=== PATIENT | female | born 1965 | race African-American/Black ===

== ENCOUNTER 2017-07-22 19:20 | Emergency (ER) | payer OTHER ==
[2017-07-22 20:07] LABS: Bilirubin Negative (Negative); Blood, Urine Negative (Negative); Glucose, Urine (Dipstick) >=1000 mg/dL (Negative); Ketone, Urine Negative (Negative); Nitrite Negative (Negative); Protein, Urine (Dipstick) 30 mg/dL (Neg-Trace); Urobilinogen 0.2 mg/dL (0.2-1.0)
[2017-07-22 20:10] LABS: Bacteria/HPF 2+ HPF (None Seen); Hyaline Casts/LPF 0-3 HYALINE CAST LPF (0-3 Hyaline); RBC/HPF 0-3 HPF (0-3)
[2017-07-22 21:51] LABS: ALT (SGPT) 78 U/L (8-55); AST (SGOT) 45 U/L (5-34); Alkaline Phosphatase 140 U/L (40-150); Anion Gap 16 mmol/L (10-20); BUN (Urea Nitrogen) 10 mg/dL (9.8-20.1); Bilirubin, Total 0.5 mg/dL (0.2-1.2); Calc. Creatinine Clearance 0 mL/min (70-130); Calcium 9.6 mg/dL (7.8-10.44); Carbon Dioxide 23 mmol/L (22-29); Chloride 103 mmol/L (98-107); Estimated GFR-MDRD 89; Globulin 3.2 g/dL (2.4-3.5); Protein, Total 7.2 g/dL (6.0-8.3)
[2017-07-22 21:58] LABS: Hematocrit 37.1 % (36.0-47.0); Mean Platelet Volume 8.5 fL (7.4-10.4); White Blood Cell (WBC) Count 15.8 thou/uL (4.8-10.8)
[2017-07-22] MEDS ORDERED: Insulin Regular 300 UNITS/3 ML VIAL ONE (22:16)
[2017-07-22] MEDS ORDERED: cefTRIAXone\\ROCEPHIN 1 GM in Sodium Chloride 0.9% 10 ML SLOW IVP SCH (22:30)
[2017-07-22 22:31] LABS: Band 4 % (5-11); Neutrophil 54 % (42-75); Nucleated RBC 1 % (0)
[2017-07-22] MEDS ORDERED: Morphine 10 MG/ML VIAL ONE (22:44)
[2017-07-22] MEDS ORDERED: Ondansetron HCl/PF 4 MG/2 ML Vial ONE (22:44)
== END 2017-07-23 00:36 | disposition home or self-care (01) ==
LOC: ERS 19:20
DX: N10 Acute pyelonephritis (principal); E11.65 Type 2 diabetes mellitus with hyperglycemia; I10 Essential (primary) hypertension; F17.210 Nicotine dependence, cigarettes, uncomplicated; Z79.4 Long term (current) use of insulin; Z79.82 Long term (current) use of aspirin
CPT/HCPCS: 36415; 36416; 80053; 81003; 81015; 85025; 86140; 96361; 96374; 96375; J0696; J1815; J2270; J2405

== ENCOUNTER → 2017-08-03 | Day surgery (SDC) | payer OTHER ==
--- NOTE | 2017-08-03 13:27 | MMO ---
DIAGNOSTIC RIGHT MAMMOGRAM: Date: 08/03/17 CLINICAL HISTORY: Postprocedure mammogram status post stereotactic biopsy of right breast. FINDINGS: Stereotactic biopsy was performed of right breast mass located deep within the upper central right b reast. Status post biopsy and clip deployment, there is a clip which now resides just cephalad to th e biopsied mass. Postprocedural air density is present. A previous clip within the anterior right br east is seen. IMPRESSION: Status post stereotactic biopsy of right breast with clip deployment. Clip is located just cephalad to the mass of the deep central right breast. Pathology results are pending. POS: [facility]
--- NOTE | 2017-08-03 13:27 | MMO ---
STEREOTACTIC BIOPSY OF RIGHT BREAST: Date: 08/03/17 CLINICAL HISTORY: Right breast lesion. PROCEDURE: Informed consent was obtained. The patient was escorted to the procedure suite and placed in a prone position with the right breast placed into compression. Stereotactic imaging was performed to local ize the mass of interest. Stereotactic coordinates were obtained. The patient's right breast was the n prepped and draped in the standard sterile fashion. Topical anesthesia was achieved with 1% lidoca ine. Through a small skin incision site, a 10 gauge stereotactic biopsy was advanced to the leading edge of the mass, confirmed with imaging, and then deployed. Subsequently, six core vacuum-assist sp ecimens were acquired of the mass. Biopsy marking clip was then deployed, which resided at the site of the biopsy mass. The patient tolerated the procedure well. Hemostasis was achieved. The patient w as discharged in stable condition. IMPRESSION: 1. Technically successful stereotactic biopsy of right breast. 2. Technically successful clip deployment at the site of biopsied right breast mass. Pathology results are pending. Patient has requested that her physician, Dr. Stanley Larson, notify her of the pathologic results when they are received. POS: [facility]
--- NOTE | 2017-08-03 13:34 | MMO ---
SPECIMEN RADIOGRAPH: Date: 08/03/17 CLINICAL HISTORY: Status post stereotactic biopsy of right breast mass. FINDINGS: Radiograph of six core specimens performed which reveals breast density corresponding to the biopsie d mass. The mass was not calcified, and therefore there is no expectation for calcium within the exc ised specimens. IMPRESSION: Specimen radiographs of right breast mass. POS: [facility]
== END ==
LOC: MAMMO 07:01
PROVIDERS: ATTEND Surgery
PROC: 0HBT3ZX Excision of Right Breast, Percutaneous Approach, Diagnostic (ICD-10-PCS; principal; 2017-08-03)
DX: N60.31 Fibrosclerosis of right breast (principal); E11.9 Type 2 diabetes mellitus without complications; F17.200 Nicotine dependence, unspecified, uncomplicated; Z79.4 Long term (current) use of insulin; Z91.041 Radiographic dye allergy status
CPT/HCPCS: 19081; 76098; 88305; 89060; G0206-RT

== ENCOUNTER 2017-11-20 09:31 | Outpatient (CLI) | payer OTHER | END 2017-11-20 09:32 | disposition home or self-care (01) | LOC: BICULT 09:31 | PROVIDERS: ATTEND Internal Medicine Medical Oncology | DX: C94.6 Myelodysplastic disease, not elsewhere classified (principal); R16.2 Hepatomegaly with splenomegaly, not elsewhere classified; K76.0 Fatty (change of) liver, not elsewhere classified | CPT/HCPCS: 76700 ==

== ENCOUNTER 2018-02-05 10:15 | Outpatient (CLI) | payer OTHER | END 2018-02-05 10:16 | disposition home or self-care (01) | LOC: BICMAMMO 10:15 | PROVIDERS: ATTEND Surgery | DX: N63.10 Unspecified lump in the right breast, unspecified quadrant (principal) | CPT/HCPCS: 77066; G0279 ==

== ENCOUNTER 2018-02-11 21:34 | Emergency (ER) | payer OTHER ==
[2018-02-11 22:09] LABS: Bilirubin Negative (Negative); Blood, Urine Negative (Negative); Clarity CLOUDY (Clear); Glucose, Urine (Dipstick) 250 mg/dL (Negative); Leukocyte Negative (Negative); Nitrite Negative (Negative); Protein, Urine (Dipstick) 100 mg/dL (Neg-Trace); Specific Gravity, Urine 1.017 (1.002-1.036); Urobilinogen 0.2 mg/dL (0.2-1.0)
[2018-02-11 22:11] LABS: Bacteria/HPF Rare-Few HPF (None Seen); Hyaline Casts/LPF 0-3 HYALINE CAST LPF (0-3 Hyaline); Pathc Cast-AUWi Flag 0.58 (0-2.49)
[2018-02-11] MEDS ORDERED: Ketorolac Tromethamine 30 MG/ML VIAL ONE (22:19)
--- NOTE | 2018-02-11 22:39 | CT ---
CT ABDOMEN AND PELVIS: 02/11/2018 PROVIDED CLINICAL HISTORY: Flank pain. COMPARISON: 04/29/2016 FINDINGS: The visualized lung bases are free of significant opacity. The solid abdominal organs are suboptimally evaluated without IV contrast but demonstrate an unremark able unenhanced CT appearance. There is no evidence for urinary tract calculi or hydronephrosis. There is no bowel dilatation, inflammatory fat stranding, free fluid, or free air apparent. The appe ndix appears normal. The osseous structures demonstrate no concerning lytic or blastic lesions. Degenerative changes are noted. Vascular calcifications are seen. IMPRESSION: No evidence for urinary tract calculi or hydronephrosis. POS: [facility]
[2018-02-11 22:42] LABS: #Basophils 0.2 thou/uL (0.0-0.2); #Eosinphils 0.2 thou/uL (0.0-0.7); #Lymphocytes 3.4 thou/uL (1.20-3.40); #Monocytes 0.7 thou/uL (0.11-0.59); #Neutrophils 9.1 thou/uL (1.40-6.50); %Basophils 1.3 % (0.0-1.0); %Eosinophils 1.6 % (0.0-10.0); %Lymphocytes 24.8 % (21.0-51.0); %Neutrophils 67.3 % (42.0-75.0); Hemoglobin 12.4 g/dL (12.0-16.0); Mean Corpuscular HGB CONC 33.4 g/dL (32.0-36.0); Mean Corpuscular Hemoglobin 26.8 pg (27.0-31.0); Mean Corpuscular Volume 80.2 fl (81.0-99.0); Mean Platelet Volume 8.6 fL (7.4-10.4); Platelet Count 980 thou/uL (130-400); RBC Distribution Width 17.3 % (11.5-14.5); Red Blood Cell (RBC) Count 4.63 mill/uL (4.20-5.40); White Blood Cell (WBC) Count 13.5 thou/uL (4.8-10.8)
[2018-02-11 23:49] LABS: ALT (SGPT) 22 U/L (8-55); AST (SGOT) 25 U/L (5-34); Albumin 3.8 g/dL (3.5-5.0); Alkaline Phosphatase 99 U/L (40-150); Anion Gap 14 mmol/L (10-20); BUN (Urea Nitrogen) 8 mg/dL (9.8-20.1); Bilirubin, Total 0.6 mg/dL (0.2-1.2); Calc. Creatinine Clearance 0 mL/min (70-130); Calcium 9.3 mg/dL (7.8-10.44); Carbon Dioxide 24 mmol/L (22-29); Chloride 105 mmol/L (98-107); Estimated GFR-MDRD Greater than 90; Globulin 3.3 g/dL (2.4-3.5); Glucose 273 mg/dL (70-105); Lipase 50 U/L (8-78); Protein, Total 7.1 g/dL (6.0-8.3); Sodium 139 mmol/L (136-145)
[2018-02-12] MEDS ORDERED: HYDROcodone/Acetaminophen 5/325 mg Tablet ONE
[2018-02-12] MEDS ORDERED: Oxymetazoline HCl 0.05% ( 15 ML ) ONE
== END 2018-02-12 00:10 | disposition home or self-care (01) ==
LOC: ERS 21:34
DX: R10.31 Right lower quadrant pain (principal); E11.9 Type 2 diabetes mellitus without complications; I10 Essential (primary) hypertension; F32.9 Major depressive disorder, single episode, unspecified; F17.210 Nicotine dependence, cigarettes, uncomplicated; Z79.4 Long term (current) use of insulin; Z79.82 Long term (current) use of aspirin; Z79.899 Other long term (current) drug therapy
CPT/HCPCS: 74176; 80053; 81003; 81015; 83690; 85025; 96361; 96374; J1885

== ENCOUNTER → 2018-02-23 | Day surgery (SDC) | payer OTHER | LOC: BICULT 13:27 | PROVIDERS: ATTEND Surgery | PROC: 0HBT3ZX Excision of Right Breast, Percutaneous Approach, Diagnostic (ICD-10-PCS; principal; 2018-02-23) | DX: C50.211 Malignant neoplasm of upper-inner quadrant of right female breast (principal) | CPT/HCPCS: 19083; 88305 ==

== ENCOUNTER 2018-03-16 15:08 | Outpatient (CLI) | payer OTHER ==
[2018-03-16 15:55] LABS: Hemoglobin 12.1 g/dL (12.0-16.0); Mean Corpuscular HGB CONC 34.4 g/dL (32.0-36.0); Mean Corpuscular Hemoglobin 26.9 pg (27.0-31.0); Mean Corpuscular Volume 78.2 fL (78.0-98.0); Mean Platelet Volume 7.8 fL (7.4-10.4); Platelet Count 911 thou/uL (130-400); RBC Distribution Width 16.8 % (11.5-14.5); Red Blood Cell (RBC) Count 4.48 mill/uL (4.20-5.40); White Blood Cell (WBC) Count 15.6 thou/uL (4.8-10.8)
[2018-03-16 16:16] LABS: ALT (SGPT) 16 U/L (8-55); AST (SGOT) 19 U/L (5-34); Albumin 3.9 g/dL (3.5-5.0); Alkaline Phosphatase 98 U/L (40-150); Anion Gap 13 mmol/L (10-20); BUN (Urea Nitrogen) 13 mg/dL (9.8-20.1); Bilirubin, Total 0.4 mg/dL (0.2-1.2); Calc. Creatinine Clearance 0 mL/min (70-130); Calcium 9.3 mg/dL (7.8-10.44); Carbon Dioxide 20 mmol/L (22-29); Chloride 107 mmol/L (98-107); Estimated GFR-MDRD Greater than 90; Globulin 3.1 g/dL (2.4-3.5); Glucose 302 mg/dL (70-105); Potassium 3.8 mmol/L (3.5-5.1); Sodium 136 mmol/L (136-145)
[2018-03-16 16:25] LABS: #Basophils 0.2 thou/uL (0.0-0.2); #Eosinphils 0.3 thou/uL (0.0-0.7); #Lymphocytes 3.7 thou/uL (1.20-3.40); #Monocytes 0.8 thou/uL (0.11-0.59); #Neutrophils 10.6 thou/uL (1.40-6.50); %Basophils 1.3 % (0.0-1.0); %Eosinophils 1.6 % (0.0-10.0); %Lymphocytes 23.8 % (21.0-51.0); %Neutrophils 68.3 % (42.0-75.0); Anisocytosis SLIGHT = 6-15 cells (100X) (0-5/hpf); MDiff Complete? YES; Ovalocytes SLIGHT = 2-5 cells (100X) (0-1/hpf); PLT Morphology Comment Appears Increased; Polychromasia SLIGHT = 2-3 cells (100X) (0-2/hpf); Tear Drops SLIGHT = 2-5 cells (100X) (0-1/hpf)
== END 2018-03-16 15:09 | disposition home or self-care (01) ==
LOC: LABBT 15:08
PROVIDERS: ATTEND Surgery
DX: Z01.818 Encounter for other preprocedural examination (principal); C50.919 Malignant neoplasm of unspecified site of unspecified female breast
CPT/HCPCS: 80053; 85025; 93005; 93010

== ENCOUNTER 2018-03-19 11:10 | Day surgery (SDC) | payer OTHER ==
[2018-03-16 15:44] VITALS: BMI 29.2
[~2018-03-19 11:10] MED LIST: Lidocaine 1% PF 5 ML VIAL ONE; Metoclopramide HCl 10 MG/2 ML VIAL ONE; Ondansetron HCl/PF 4 MG/2 ML Vial ONE; PROPOFOL 200 MG/20 ML VIAL ONE
[2018-03-19] MEDS ORDERED: CEFAZOLIN/Water 2 GM/20 ML SYRINGE ONE (11:34)
[2018-03-19] MEDS ORDERED: Bupivacaine/Epinephrine 0.25% 30 ML VIAL ONE (12:20)
[2018-03-19] MEDS ORDERED: Midazolam HCl 2 mg/2 ml Vial ONE (12:22)
[2018-03-19] MEDS ORDERED: Propofol 1,000 MG/100 ML VIAL IV ONE (12:22)
[2018-03-19] MEDS ORDERED: Fentanyl 100 MCG/2 ML VIAL ONE ×2 (12:22→13:33)
--- NOTE | 2018-03-19 13:41 | OP ---
DATE OF PROCEDURE: 03/19/2018 PREOPERATIVE DIAGNOSIS: Breast cancer. SURGEON: Stanley Larson M.D. PROCEDURE PERFORMED: MediPort placement. INDICATIONS: A 52-year-old female with very aggressive breast cancer needs preoperative chemo. FINDINGS: A difficult procedure, the J wire just kept going up into the neck, I had to do it under a ctive fluoroscopy, was finally able to get it down into the superior vena cava. PROCEDURE: After informed consent was obtained, the patient was taken to the operating room and give n general mask anesthesia, placed in supine position. The abdomen was prepped and draped in usual fa shion. Local anesthesia infiltrated subcutaneously and deep. Introducer needle was inserted in left subclavian with good backflow of venous blood. J-wire threaded, but only partially and when I had t hem do fluoroscopy, it was going up the neck, so under active fluoroscopy, I pulled it back and then advanced it with her in reverse Trendelenburg to go down into the superior vena cava. Then the subq was anesthetized. A transverse chest wall incision performed. The subcu divided sharply. A pocket created on the pectoralis muscle. A tunneling device was used to connect the two incisions. The cath eter brought through the tunnel, connected to the MediPort secured to the chest wall with interrupted 2-0 Prolene suture. Then the system was flushed with heparinized saline. The peel-away introducer inserted over the wire. The wire was removed. The catheter cut to size and inserted through the pee l-away introducer, then the peel-away introducer removed. Fluoroscopy again used. It showed that th e catheter was in the brachiocephalic but it was working fine. The subcu was reapproximated with int errupted 3-0 Vicryl. Skin closed with a running subcuticular 4-0 Rapide. Dermabond applied. The pa tient tolerated the procedure well and was transferred to recovery in good condition. Sponge and nee dle count verified correct x2.
[2018-03-19] MEDS ORDERED: HYDROcodone/Acetaminophen 5/325 mg Tablet ONE (14:59)
--- NOTE | 2018-03-19 15:11 | RAD ---
SUPINE PORTABLE CHEST: HISTORY: Assess MediPort placement. MediPort catheter is in place in the left subclavian vein. The tip of the catheter overlies the righ t upper lung and probably resides in the right brachiocephalic vein. Lungs are clear. Heart and med iastinum unremarkable. No pneumothorax. Dr. Larson is being paged for notification at time of dictation. CODE CR POS: [facility]
== END 2018-03-19 15:47 | disposition home or self-care (01) ==
LOC: SDC 11:10
PROVIDERS: ATTEND Surgery
PROC: 0JH63WZ Insertion of Totally Implantable Vascular Access Device into Chest Subcutaneous Tissue and Fascia, Percutaneous Approach (ICD-10-PCS; principal; 2018-03-19)
DX: C50.919 Malignant neoplasm of unspecified site of unspecified female breast (principal); Z91.041 Radiographic dye allergy status
CPT/HCPCS: 36415; 36416; 71045; 80053; 82248; 83615; 84100; 84550; 96374; C1788; J1642; J2001; J2250; J2405; J2704; J2765; J3010

== ENCOUNTER 2018-03-23 09:36 | Day surgery (SDC) | payer OTHER ==
[2018-03-23] MEDS ORDERED: Sodium Chloride 0.9% 50 ML ONE (09:55)
--- NOTE | 2018-03-23 11:20 | RAD ---
CHEST TWO VIEWS: History: Mediport placement. Comparison: 01-13-16 FINDINGS: Cardiac silhouette and pulmonary vasculature unremarkable. Mediastinum midline. Tip of the left subcl rosario Mediport projects over the superior vena cava. No evidence of pneumothorax. No lobar consolidat ion, pleural fluid, or focal infiltrate. IMPRESSION: Left subclavian Mediport is in good radiographic position. POS: [facility]
[2018-03-23 12:41] VITALS: BP 148/85; TEMP 97.9
== END 2018-03-23 14:43 | disposition home or self-care (01) ==
LOC: ONC/OP 09:36
PROVIDERS: ATTEND Internal Medicine Medical Oncology
DX: Z51.11 Encounter for antineoplastic chemotherapy (principal); C50.411 Malignant neoplasm of upper-outer quadrant of right female breast; D72.828 Other elevated white blood cell count; Z91.041 Radiographic dye allergy status
CPT/HCPCS: 71046; 99212; A4216; G0463; J1642

== ENCOUNTER 2018-03-31 09:43 | Day surgery (SDC) | payer OTHER ==
[2018-03-31 13:24] VITALS: BP 185/79; TEMP 98.1
== END 2018-03-31 15:15 | disposition home or self-care (01) ==
LOC: ONC/OP 09:43
PROVIDERS: ATTEND Internal Medicine Medical Oncology
DX: Z51.11 Encounter for antineoplastic chemotherapy (principal); C50.411 Malignant neoplasm of upper-outer quadrant of right female breast; D72.828 Other elevated white blood cell count; Z91.041 Radiographic dye allergy status
CPT/HCPCS: 99212; G0463

== ENCOUNTER 2018-04-01 07:56 | Outpatient (CLI) | payer OTHER ==
[2018-04-01] MEDS ORDERED: Pegfilgrastim 6 MG/0.6 ML Delivery Kit SQ SCH (09:45)
[2018-04-01] MEDS ORDERED: Dexamethasone 20 MG in Sodium Chloride 0.9% 50 ML IVPB SCH (09:45)
[2018-04-01] MEDS ORDERED: PALONOSETRON HCL 0.05 MG/ML 5 ML VIAL IVP SCH (09:45)
[2018-04-01] MEDS ORDERED: CARBOPLATIN IVPB SCH (09:45)
[2018-04-01] MEDS ORDERED: diphenhydrAMINE 50 MG/ML VIAL IVP SCH (09:45)
[2018-04-01] MEDS ORDERED: SODIUM CHLORIDE 0.9% IVPB SCH ×3 (09:45→10:15)
[2018-04-01] MEDS ORDERED: Acetaminophen 500 MG TAB PO SCH (09:45)
[2018-04-01] MEDS ORDERED: DOCEtaxel 140 MG in Sodium Chloride 0.9% 250 ML 250 ML IVPB SCH (09:45)
[2018-04-01] MEDS ORDERED: TRASTUZUMAB IVPB SCH ×2 (10:00→10:15)
--- NOTE | 2018-04-01 11:25 | RAD ---
VASCULAR ACCESS PORT CHECK: HISTORY: A 52-year-old female with a history of pain and discomfort in left arm with port injection and manipu lation. FLUOROSCOPY TIME: 1.1 minute. DOSE: 316.7 mGy*^m2. FINDINGS: Iodinated contrast media was injected within the port. There is no evidence for extravasation at any of the connections. Contrast media progressed readily through the catheter emptying into the superi or vena cava. IMPRESSION: Normal functioning left subclavian catheter and injection port. No obstruction or extravasation. POS: [facility]
[2018-04-01 12:12] VITALS: BP 187/89; TEMP 98.8
[2018-04-01] MEDS ORDERED: Iopamidol-M 300 61% 15 ML VIAL ONE (13:32)
== END 2018-04-01 16:15 | disposition home or self-care (01) ==
LOC: RAD 07:56 → ONC/OP 16:15
PROVIDERS: ATTEND Internal Medicine Medical Oncology
DX: C50.411 Malignant neoplasm of upper-outer quadrant of right female breast (principal); D72.828 Other elevated white blood cell count
CPT/HCPCS: 36598; 96375; 96377; 96413; 96417; J1100; J1200; J1642; J2469; J2505; J7050; J9045; J9171; J9355

== ENCOUNTER 2018-04-01 21:52 | Inpatient (IN) | payer OTHER ==
--- NOTE | 2018-04-01 22:10 | CT ---
HEAD CT WITHOUT CONTRAST: 04/01/18 COMPARISON: 02/05/15. HISTORY: Stroke-like symptoms, left arm numbness and weakness with chest pain. TECHNIQUE: Serial axial CT imaging at 5 mm intervals from vertex through skull base without contrast. FINDINGS: The visualized paranasal sinuses and mastoid air cells are well aerated. There is no displaced calvar ial fracture. No intracranial hemorrhage, midline shift, mass effect or ventricular enlargement. IMPRESSION: No acute findings. Results called to Dr. Fox at 10 p.m., 04/01/18. Code CR POS: [facility]
[2018-04-01 22:14] LABS: Hemoglobin 12.4 g/dL (12.0-16.0); Mean Corpuscular HGB CONC 33.8 g/dL (32.0-36.0); Mean Corpuscular Hemoglobin 26.1 pg (27.0-31.0); Mean Corpuscular Volume 77.3 fL (78.0-98.0); Platelet Count 922 thou/uL (130-400); RBC Distribution Width 20.2 % (11.5-14.5); Red Blood Cell (RBC) Count 4.73 mill/uL (4.20-5.40)
[2018-04-01 22:30] LABS: ALT (SGPT) 29 U/L (8-55); AST (SGOT) 19 U/L (5-34); Albumin 4.3 g/dL (3.5-5.0); Alkaline Phosphatase 162 U/L (40-150); Anion Gap 17 mmol/L (10-20); BUN (Urea Nitrogen) 19 mg/dL (9.8-20.1); Bilirubin, Total 0.5 mg/dL (0.2-1.2); Calc. Creatinine Clearance 0 mL/min (70-130); Calcium 9.8 mg/dL (7.8-10.44); Carbon Dioxide 19 mmol/L (22-29); Chloride 100 mmol/L (98-107); Estimated GFR-MDRD 62; Globulin 3.1 g/dL (2.4-3.5); Lipase 25 U/L (8-78); Magnesium 2.4 mg/dL (1.6-2.6); Potassium 4.5 mmol/L (3.5-5.1); Protein, Total 7.4 g/dL (6.0-8.3); Sodium 131 mmol/L (136-145)
[2018-04-01 22:33] LABS: Lymphocytes 4 % (21-51); MDiff Complete? YES; Monocytes 8 % (0-10); Neutrophil 88 % (42-75); PLT Morphology Comment Appears Increased; White Blood Cell (WBC) Count 22.8 thou/uL (4.8-10.8)
[2018-04-01 22:34] LABS: CKMB 1.5 ng/mL (0-6.6); Troponin I Less than 0.010 ng/mL (< 0.028)
[2018-04-01 22:35] LABS: Glucose 727 mg/dL (70-105)
[2018-04-01] MEDS ORDERED: Ondansetron HCl/PF 4 MG/2 ML Vial ONE (23:28)
[2018-04-01] MEDS ORDERED: Insulin Regular 100 units/100 ml in NS IVPB SCH (23:45)
[2018-04-01] MEDS ORDERED: Insulin Regular 300 UNITS/3 ML VIAL ONE (23:52)
[2018-04-02 01:48] LABS: Bilirubin Negative (Negative); Blood, Urine Small (Negative); Clarity CLEAR (Clear); Glucose, Urine (Dipstick) >=1000 mg/dL (Negative); Leukocyte Negative (Negative); Nitrite Negative (Negative); Protein, Urine (Dipstick) 100 mg/dL (Neg-Trace); Specific Gravity, Urine 1.024 (1.002-1.036); Urobilinogen 0.2 mg/dL (0.2-1.0); pH, Urine 6.5 (5.0-9.0)
[2018-04-02 01:50] LABS: Anion Gap 12 mmol/L (10-20); BUN (Urea Nitrogen) 16 mg/dL (9.8-20.1); Calc. Creatinine Clearance 0 mL/min (70-130); Carbon Dioxide 20 mmol/L (22-29); Chloride 106 mmol/L (98-107); Estimated GFR-MDRD Greater than 90; Glucose 526 mg/dL (70-105); Potassium 3.9 mmol/L (3.5-5.1); Sodium 134 mmol/L (136-145)
[2018-04-02 01:53] LABS: Bacteria/HPF None Seen HPF (None Seen); Hyaline Casts/LPF 0-3 HYALINE CAST LPF (0-3 Hyaline); Pathc Cast-AUWi Flag 0.14 (0-2.49); RBC/HPF 0-3 HPF (0-3); Squamous Epithelial None Seen HPF (0-3); WBC/HPF None Seen HPF (0-3)
[2018-04-02] MEDS ORDERED: D5 1/2 NS w/20 mEq KCL 1,000 ML IV PRN (03:59)
[2018-04-02] MEDS ORDERED: Sodium Chloride 0.9% 1,000 ML IV PRN ×4 (03:59)
[2018-04-02] MEDS ORDERED: Dextrose 5 %-0.45 % NaCl 1,000 ML IV PRN (03:59)
[2018-04-02] MEDS ORDERED: Acetaminophen 325 MG TAB PO PRN (03:59)
[2018-04-02] MEDS ORDERED: CCU Electrolyte Replacement 1 EACH IVPB SCH (03:59)
[2018-04-02] MEDS ORDERED: NS 0.9% w/ 20 MEQ KCL 1,000 ML IV PRN (03:59)
[2018-04-02] MEDS ORDERED: Potassium Chloride 40 MEQ in Premix Bag 1 BAG IVPB PRN (04:03)
[2018-04-02] MEDS ORDERED: Magnesium 2 GM/NS 0.9% 100 ML 2 GM in Premix Bag 1 BAG IVPB PRN (04:03)
[2018-04-02] MEDS ORDERED: Potassium Chloride 20 MEQ TAB PO PRN (04:03)
[2018-04-02] MEDS ORDERED: CCU ELECTROLYTE REPLACEMENT PROTOCOL FS PRN (04:03)
[2018-04-02] MEDS ORDERED: Potassium Chloride 40 MEQ in Sodium Chloride 0.9% 250 ML 250 ML IVPB PRN (04:03)
[2018-04-02] MEDS ORDERED: Potassium Phosphate 15 MMOL in Sodium Chloride 0.9% 250 ML 250 ML IV PRN (04:03)
[2018-04-02] MEDS ORDERED: Potassium Phosphate 9 MMOL in Sodium Chloride 0.9% 100 ML IVPB PRN (04:03)
[2018-04-02] MEDS ORDERED: Magnesium Oxide 400 MG TAB PO PRN ×2 (04:03)
[2018-04-02] MEDS ORDERED: Potassium Phosphate 12 MMOL in Sodium Chloride 0.9% 250 ML 250 ML IV PRN (04:03)
[2018-04-02] MEDS: Aspirin 325 MG TAB PO SCH (04:08)
[2018-04-02] MEDS: NS 0.9% w/ 20 MEQ KCL 1,000 ML IV PRN ×2 (04:26→06:08)
[2018-04-02 05:03] VITALS: BMI 29.6
[2018-04-02 05:15] LABS: Anion Gap 15 mmol/L (10-20); BUN (Urea Nitrogen) 14 mg/dL (9.8-20.1); Calc. Creatinine Clearance 118 mL/min (70-130); Calcium 8.8 mg/dL (7.8-10.44); Carbon Dioxide 19 mmol/L (22-29); Chloride 108 mmol/L (98-107); Estimated GFR-MDRD Greater than 90; Glucose 289 mg/dL (70-105); Potassium 3.5 mmol/L (3.5-5.1); Sodium 138 mmol/L (136-145)
--- NOTE | 2018-04-02 05:56 | HP ---
PRIMARY CARE PHYSICIAN: Dr. Smiley CHIEF COMPLAINT: Pain in the left upper extremity following chemotherapy. HISTORY OF PRESENT ILLNESS: Ms. Joy is a pleasant 52-year-old female that has a history of recent ly diagnosed breast cancer as well as diabetes mellitus and hypertension. She says that she was rece ntly diagnosed with breast cancer and had a MediPort placed about 3 weeks ago. She says they have no t been able to use the MediPort because every time they tried to access it she gets severe pain there . So she went earlier yesterday to have the MediPort checked to see if it was patent. She says that they had to give her some dye so she has a history of iodine allergy and they gave her the 13 hour p retreatment with Benadryl and Decadron. She says that following this she went for her first chemothe rapy infusion and she is receiving carboplatin, Taxol and Herceptin. She says that after the chemoth erapy treatment they removed the needle and she started having severe pain that went into her left up per extremity. She says it is primarily from the elbow to the shoulder and went into her chest. She says it feels like pins and needles. She says that she tried to walk it off after she got home thin nicole that it would go away; however, the pain persisted and for this reason she came to the emergency room for evaluation. She also says that she was having "nerve" problems as well as she says that deana servin was having some pain in her legs on the left side as well, but she denies having any weakness. She has been able to lift her arms without any difficulty, but continues to have the numbness and tingli ng. In the ER when she was evaluated her blood sugar was noted to be above 700. She had a slight el evated anion gap and she is being admitted for DKA. The patient also has a history of what appears t o be essential thrombocytosis and she has been on aspirin in the past, but she says that she was told by Dr. Hector to stop this while her chemotherapy was in progress and she has not had any aspirin in over a month. REVIEW OF SYSTEMS: All systems were reviewed and are negative except for that mentioned in history o f present illness. PAST MEDICAL HISTORY: Significant for breast cancer, diabetes mellitus type 2 and hypertension. PAST SURGICAL HISTORY: She has a history of renal stones extraction, hysterectomy, and hernia repair . ALLERGIES: IODINE. SOCIAL HISTORY: She is , has 4 children. She is a current smoker. She denies any alcohol use. CODE STATUS: Her code status is FULL CODE. FAMILY HISTORY: She says everybody has cancer, her mother has breast cancer. Grandmother ovarian ca ncer. Her son had prostate cancer and there is throat cancer in the family as well. MEDICATIONS: Lantus 24 units daily, losartan 25 mg daily, dexamethasone 4 mg as directed, Prochlorpe razine 10 mg daily, metformin 1000 mg twice a day, amlodipine 5 mg daily, naproxen 500 mg twice a day . She is on carboplatin, Taxol and Herceptin as well as Neulasta. PHYSICAL EXAMINATION: GENERAL: She is alert and oriented. She appears to be in no acute distress. VITAL SIGNS: Stable. HEENT: Pupils are equal, round, and reactive. Extraocular muscles are intact. Her sclerae are anic teric. Throat: There is no erythema, no exudates. NECK: No adenopathy, no bruits. LUNGS: Clear to auscultation. There was no wheezing or rales. CARDIOVASCULAR: She has a normal S1, S2. There was no S3 or S4. No murmurs, clicks or rubs. ABDOMEN: Soft, it is nontender, nondistended. Positive for bowel sounds. There is no rebound or gu arding. EXTREMITIES: There is no clubbing, cyanosis, no edema. She has got good radial and ulnar pulses tolu aterally. On the lower extremities there is no edema. Good distal dorsalis pedis pulses. NEUROLOGICALLY: Her muscle strength is 5/5 in both her upper and lower extremities. It is grossly n onfocal. SKIN AND INTEGUMENT: At the MediPort site there is some surrounding edema and tenderness around the MediPort, but there is no redness and there is no drainage. LABORATORY RESULTS: Sodium is 131, potassium 4.5, chloride is 100, CO2 is 19, BUN of 19, creatinine 1.12, glucose was 727, alkaline phosphatase is 162, white blood cell count was 22.8, hemoglobin 12.4, hematocrit is 36.6, platelet count was 922. Urinalysis was essentially negative. Beta hydroxybutyr ate was 0.54. The patient also had a CT scan of the brain showing no acute findings. ASSESSMENT AND PLAN: 1. This is a 52-year-old female that presents with left arm pain following chemotherapy. It is uncl ear whether or not this is a reaction to the iodine or the chemotherapeutic medications or some type of malfunctioning of the MediPort. She is going to be admitted for further evaluation. With regards to the pain after the treatment, we will have her surgeon, Dr. Larson, take a look at the MediPort to evaluate. 2. Diabetic ketoacidosis. She has been started on an insulin drip in the ER. We will continue with the DKA protocol. I suspect that she developed DKA as a result of the steroids. She does not have a glucometer at home and we discussed the need for obtaining a glucometer and she will likely need to be placed on a sliding scale insulin while she is on steroids for her chemotherapy. 3. Hypertension. We will continue amlodipine. We will hold off on the losartan at this time given that I suspect that she is volume depleted and this can be restarted once the diabetic ketoacidosis h as resolved. We will also be holding her usual diabetic medications once again until the diabetic ke toacidosis has resolved. 4. Essential thrombocytosis. We will give her one dose of aspirin given her symptomatology today an d allow her client care manager to make further recommendations regarding aspirin therapy.
[2018-04-02 08:24] LABS: Anion Gap 12 mmol/L (10-20); BUN (Urea Nitrogen) 12 mg/dL (9.8-20.1); Calc. Creatinine Clearance 145 mL/min (70-130); Calcium 8.3 mg/dL (7.8-10.44); Carbon Dioxide 21 mmol/L (22-29); Chloride 114 mmol/L (98-107); Estimated GFR-MDRD Greater than 90; Glucose 92 mg/dL (70-105); Potassium 4.3 mmol/L (3.5-5.1); Sodium 143 mmol/L (136-145)
[2018-04-02] MEDS: Enoxaparin Sodium 40 MG/0.4 ML SYRINGE SC SCH (09:01)
[2018-04-02] MEDS: metFORMIN 500 MG TAB PO SCH ×2 (09:02→16:57)
[2018-04-02] MEDS: Famotidine/PF 20 mg/2ml Vial SLOW IVP SCH ×2 (09:02→22:18)
[2018-04-02] MEDS: Insulin Glargine 24 UNITS in Pre-Filled Syringe 1 EACH SC SCH ×2 (09:03→22:12)
[2018-04-02] MEDS ORDERED: Heparin 1,000 UNITS/ML VIAL ONE (10:00)
[2018-04-02] MEDS ORDERED: Dextrose 50% Abboject 50 ML SYRINGE IVP PRN (11:17)
[2018-04-02] MEDS ORDERED: Dextrose 5% in Water 1,000 ML IV PRN (11:17)
[2018-04-02] MEDS: HumaLOG 300 UNITS/3 ML VIAL SC PRN ×2 (11:24→16:58)
--- NOTE | 2018-04-02 17:33 | PDOC.EVN ---
Event Note - Event Note Event Note: Chart reviewed, patient seen. Will follow.
--- NOTE | 2018-04-02 22:30 | CON ---
DATE OF CONSULTATION: 04/02/2018 REASON FOR CONSULTATION: Breast cancer. HISTORY OF PRESENT ILLNESS: Ms. Joy is a pleasant 52-year-old female with a history of essential thrombocytosis, who was diagnosed with stage IIA ER negative, AK negative, HER-2 positive invasive ductal carcinoma of the right breast. Yesterday, she had a cycle 1 of neoadjuvant chemotherapy with Taxotere , Herceptin and carboplatin. This was via MediPort that was placed last Thursday. She did have a MediPort study prior to chemotherapy. She is allergic to IODINE, but underwent the protocol for iodine allergy and tolerated it well. The MediPort was no dysfunctioning, so chemotherapy was given. Throughout chemotherapy, patient had no complaints of swelling or pain. She had good blood return throughout the entire treatment. When she got home, she did take a nap and when edilson she began to complain of left chest swelling and left arm numbness. Her pain continued to increase, so she presented to the emergency room for evaluation. Routine labs showed a glucose of greater than 550 and she had an anion gap, was admitted for DKA and evaluation of her MediPort. The patient has been on aspirin for central thrombocythemia. Her platelet count runs anywhere from 650 to greater than a million. On this admission, her platelets were 922,000. The patient's white count is elevated, but she did receive both oral and IV dexamethasone with treatment, also contributing to her elevated glucose. The patient does not monitor her glucose at home. She has a glucometer, but it is broken. Currently, she complains of pain in her left chest region. She is tender to palpation at the MediPort site. There is no erythema noted. No fevers. PAST MEDICAL HISTORY: 1. Stage IIA invasive ductal carcinoma of the right breast. 2. Diabetes mellitus 2. 3. Myeloproliferative disorder. 4. Hypertension. 5. Arthritis. 6. Morbid obesity. PAST SURGICAL HISTORY: 1. Breast biopsy. 2. Partial hysterectomy. 3. Cholecystectomy. 4. Umbilical hernia repair. 5. x4. ALLERGIES: IODINE. HOME MEDICATIONS: 1. Tramadol 50 mg p.r.n. 2. Amlodipine 5 mg daily. 3. Lantus insulin. 4. Losartan 25 mg daily. 5. Metformin 1000 mg b.i.d. 6. Naproxen p.r.n. FAMILY HISTORY: Her mother had breast cancer at the age of 60. She has family history of sickle cell trait, diabetes, and hypertension. SOCIAL HISTORY: , 4 children, lives alone. Current every day smoker, [id number] history. No alcohol or illicit drug use. REVIEW OF SYSTEMS: A 12-point review of systems is negative, except for noted in HPI. PHYSICAL EXAMINATION: VITAL SIGNS: Temperature is 97.9, pulse is 81, respiratory rate is 18, BP is 135/59. She is 95% on room air. GENERAL: Well-developed, well-nourished female in no acute distress. HEENT: Normocephalic, atraumatic. Pupils equal and reactive to light. NECK: Supple. CARDIOVASCULAR: Regular rate and rhythm. LUNGS: Clear. ABDOMEN: Obese, nontender. She has an Onpro Neulasta kit on her right lower quadrant. EXTREMITIES: No clubbing, cyanosis or edema. SKIN: No rash. MediPort in left chest with some swelling and tenderness, but no erythema. HEMATOLOGIC: No petechia or purpura. NEUROLOGICAL: Nonfocal. PSYCHIATRIC: The patient is alert, oriented and appropriate. PERTINENT LABORATORY AND X-RAYS: Current WBCs are 22.8, hemoglobin 12.4, hematocrit 36.6, platelet count is 922,000, 88% neutrophils, 4% lymphocytes. Sodium is 143, potassium 4.3, chloride 114, CO2 is 21, BUN is 12, creatinine 0.58, calcium is 8.3. ASSESSMENT: 1. Invasive ductal carcinoma of the right breast, status post cycle 1 chemotherapy with Taxotere, carboplatin, and Herceptin. 2. Left upper extremity swelling and tenderness of her MediPort site. 3. Myeloproliferative disorder. 4. Diabetic ketoacidosis. DISCUSSION: The patient's MediPort will be evaluated by Dr. Larson. I suspect that it may have malfunctioned after treatment and may need to be removed. She will need a new access, as she is on Herceptin for a year. Regarding her myeloproliferative disorder, she can take an aspirin daily while she is here. Her blood counts will drop next week. I would hold aspirin once she is discharged from this facility and we will recheck her in the clinic next week. Her DKA is being treated by [facility] and appreciate their assistance. I will adjust her pain medications and further recommendations will be based on surgical evaluation. Thank you for the consult. JAYDE
[2018-04-02] MEDS: HYDROcodone/Acetaminophen 5/325 mg Tablet PO PRN (23:03)
[2018-04-03 04:34] LABS: Anion Gap 11 mmol/L (10-20); BUN (Urea Nitrogen) 12 mg/dL (9.8-20.1); Calc. Creatinine Clearance 138 mL/min (70-130); Calcium 8.7 mg/dL (7.8-10.44); Carbon Dioxide 23 mmol/L (22-29); Chloride 108 mmol/L (98-107); Estimated GFR-MDRD Greater than 90; Glucose 207 mg/dL (70-105); Potassium 3.5 mmol/L (3.5-5.1); Sodium 138 mmol/L (136-145)
[2018-04-03] MEDS: metFORMIN 500 MG TAB PO SCH ×2 (09:40→16:53)
[2018-04-03] MEDS: Insulin Glargine 24 UNITS in Pre-Filled Syringe 1 EACH SC SCH ×2 (09:41→21:11)
[2018-04-03] MEDS: Enoxaparin Sodium 40 MG/0.4 ML SYRINGE SC SCH (09:50)
[2018-04-03] MEDS: HYDROcodone/Acetaminophen 5/325 mg Tablet PO PRN ×4 (10:01→22:55)
[2018-04-03] MEDS: Ondansetron HCl/PF 4 MG/2 ML Vial IVP SCH ×4 (10:12→23:04)
[2018-04-03] MEDS: Famotidine/PF 20 mg/2ml Vial SLOW IVP SCH ×2 (10:12→21:00)
--- NOTE | 2018-04-03 16:55 | PDOC.PN ---
- Subjective Encounter Start Date: 04/03/18 Encounter Start Time: 11:40 Pt seen for followup re: DKA. Denies chest pain, shortness of breath, fevers or chills. - Objective Resuscitation Status: Resuscitation Status FULL:Full Resuscitation MAR Reviewed: Yes Vital Signs & Weight: Vital Signs (12 hours) Temp Pulse Resp BP Pulse Ox 04/03/18 16:37 98.1 F 91 16 140/65 98 04/03/18 11:36 98 F 78 16 118/58 L 97 04/03/18 07:54 97.8 F 90 16 143/97 H 97 Weight Weight 178 lb 1 oz I&O: 04/02/18 04/03/18 04/04/18 06:59 06:59 06:59 Intake Total 1000 1135.1 Output Total 650 Balance 350 1135.1 Result Diagrams: 04/01/18 22:02 04/03/18 03:54 Additional Labs: Accuchecks 04/03/18 04/03/18 04/03/18 16:25 11:22 09:36 POC Glucose 209 H 196 H 215 H 04/03/18 04/02/18 04/02/18 07:13 20:36 16:24 POC Glucose 178 H 299 H 280 H Labs reviewed by me Phys Exam - Physical Examination Constitutional: NAD HEENT: moist MMs, sclera anicteric, oral pharynx no lesions, 2+ tonsils Neck: no nodes, no JVD, supple, full ROM Respiratory: no wheezing, no rales, no rhonchi, clear to auscultation bilateral Cardiovascular: RRR, no rub S1, s2 Gastrointestinal: soft, non-tender, no distention, positive bowel sounds Neurological: moves all 4 limbs Psychiatric: normal affect, A&O x 3 Dx/Plan (1) Arm pain Status: Acute Comment: continue pain meds, await surgical consult (2) DM2 (diabetes mellitus, type 2) Status: Chronic Comment: continue accuchecks, insulin sliding scale (3) Breast cancer Status: Chronic Comment: for chemo (4) HTN (hypertension) Code(s): I10 - ESSENTIAL (PRIMARY) HYPERTENSION Status: Chronic Comment: controlled (5) Myeloproliferative disorder Code(s): D47.1 - CHRONIC MYELOPROLIFERATIVE DISEASE Status: Chronic Comment : start aspirin, discontinue at the time of discharge (6) DKA (diabetic ketoacidoses) Code(s): E13.10 - OTH DIABETES MELLITUS WITH KETOACIDOSIS WITHOUT COMA Status : Resolved - Plan * . Review of Systems - Review of Systems Constitutional: negative: fever, chills, sweats, weakness, malaise Respiratory: negative: Cough, Shortness of Breath, SOB with Excertion, Pleuritic Pain, Wheezing Cardiovascular: negative: chest pain, palpitations, orthopnea, paroxysmal nocturnal dyspnea, edema, light headedness Gastrointestinal: Nausea. negative: Vomiting, Abdominal Pain, Diarrhea, Constipation, Melena, Hematochezia Genitourinary: negative: Dysuria, Frequency, Incontinence, Hematuria, Retention Musculoskeletal: Arm Pain. negative: Neck Pain, Shoulder Pain, Back Pain, Hand Pain, Leg Pain, Foot Pain - Medications/Allergies Allergies/Adverse Reactions: Allergies Allergy/AdvReac Type Severity Reaction Status Date / Time Iodine and Iodide Containing Allergy "swelling" Verified 03/16/18 15:40 Produc Medications: Current Medications Acetaminophen (Tylenol) 650 mg PO Q4H PRN PRN Reason: Headache/Fever or Pain Hydrocodone Bitart/Acetaminophen ([place] 5/325) 1 tab PO Q4H PRN PRN Reason: Mild-Moderate Pain (1-5) Last Admin: 04/03/18 10:01 Dose: 1 tab Hydrocodone Bitart/Acetaminophen ([place] 5/325) 2 tab PO Q4H PRN PRN Reason: Moderate to Severe Pain (6-10) Last Admin: 04/03/18 15:01 Dose: 2 tab Dextrose/Water (Dextrose 50%) 25 gm IVP PRN PRN PRN Reason: HYPOGLYCEMIA PROTOCOL Enoxaparin Sodium (Lovenox) 40 mg SC 0900 [facility] Last Admin: 04/03/18 09:50 Dose: 40 mg Famotidine (Pepcid) 20 mg SLOW IVP Q12HR MATTHEW Last Admin: 04/03/18 10:12 Dose: 20 mg Glucagon (Glucagon) 1 mg IM PRN PRN PRN Reason: HYPOGLYCEMIA PROTOCOL Insulin Glargine 24 units/ (Miscellaneous Medication) 0.24 mls @ 0 mls/hr SC BID MATTHEW PRN Reason: As Directed Last Admin: 04/03/18 09:41 Dose: 0.24 mls Dextrose/Water (D5w) 1,000 mls @ 0 mls/hr IV INF PRN; As Directed PRN Reason: HYPOGLYCEMIA PROTOCOL Insulin Human Lispro (Humalog) 0 units SC .MILD SLIDING SCALE PRN; Protocol PRN Reason: MILD SLIDING SCALE Last Admin: 04/02/18 16:58 Dose: 4 unit Metformin HCl (Glucophage) 1,000 mg PO BID-[facility] Last Admin: 04/03/18 16:53 Dose: 1,000 mg Morphine Sulfate (Morphine) 2 mg SLOW IVP Q6H PRN PRN Reason: Pain Last Admin: 04/02/18 20:08 Dose: 2 mg Ondansetron HCl (Zofran) 4 mg IVP Q6H [facility] Last Admin: 04/03/18 16:54 Dose: 4 mg Sodium Chloride (Flush - Normal Saline) 10 ml IVF Q12HR [facility] Last Admin: 04/03/18 09:59 Dose: 10 ml Sodium Chloride (Flush - Normal Saline) 10 ml IVF PRN PRN PRN Reason: Saline Flush
[2018-04-03] MEDS ORDERED: Prochlorperazine Maleate 5 MG TAB PO PRN (17:01)
[2018-04-03] MEDS ORDERED: HYDROcodone/Acetaminophen 5/325 mg Tablet PO PRN (17:01)
[2018-04-03] MEDS ORDERED: Aspirin 325 mg Enteric Coated Tablet PO SCH (17:15)
[2018-04-03] MEDS: Aspirin 325 MG TAB PO SCH (17:53)
[2018-04-03] MEDS ORDERED: CEFAZOLIN/Water 2 GM/20 ML SYRINGE SLOW IVP SCH (20:15)
[2018-04-03] MEDS ORDERED: Naproxen 500 MG TAB PO SCH (21:00)
[2018-04-03] MEDS ORDERED: Non-Formulary Item 1 EACH (Insulin Glargine,Hum.Rec.Anlog [Lantus Solostar] 24 UNIT) SC SCH (21:00)
[2018-04-03] MEDS: HumaLOG 300 UNITS/3 ML VIAL SC PRN (21:10)
[2018-04-04] MEDS: Ondansetron HCl/PF 4 MG/2 ML Vial IVP SCH ×4 (04:57→22:37)
[2018-04-04] MEDS: HYDROcodone/Acetaminophen 5/325 mg Tablet PO PRN ×2 (04:57→18:41)
[2018-04-04 05:24] LABS: Anion Gap 12 mmol/L (10-20); BUN (Urea Nitrogen) 9 mg/dL (9.8-20.1); Calc. Creatinine Clearance 129 mL/min (70-130); Calcium 8.8 mg/dL (7.8-10.44); Carbon Dioxide 24 mmol/L (22-29); Chloride 105 mmol/L (98-107); Estimated GFR-MDRD Greater than 90; Glucose 158 mg/dL (70-105); Potassium 3.2 mmol/L (3.5-5.1); Sodium 138 mmol/L (136-145)
[2018-04-04 06:12] LABS: Band 5 % (5-11); Lymphocytes 14 % (21-51); MDiff Complete? YES; Mean Corpuscular HGB CONC 32.7 g/dL (32.0-36.0); Mean Corpuscular Hemoglobin 25.6 pg (27.0-31.0); Mean Corpuscular Volume 78.3 fL (78.0-98.0); Mean Platelet Volume 8.8 fL (7.4-10.4); Monocytes 6 % (0-10); Neutrophil 75 % (42-75); PLT Morphology Comment Appears Increased; Platelet Count 598 thou/uL (130-400); RBC Distribution Width 16.7 % (11.5-14.5); Red Blood Cell (RBC) Count 4.29 mill/uL (4.20-5.40); White Blood Cell (WBC) Count 25.2 thou/uL (4.8-10.8)
[2018-04-04] MEDS: Enoxaparin Sodium 40 MG/0.4 ML SYRINGE SC SCH (09:01)
--- NOTE | 2018-04-04 09:02 | CON ---
DATE OF CONSULTATION: 04/03/2018 CHIEF COMPLAINT: Painful left MediPort. HISTORY OF PRESENT ILLNESS: Patient is a 52-year-old female who has had a left subclavian MediPort p laced 3 weeks ago for breast cancer. She has been undergoing chemotherapy. Every time they access t o infuse, she complains of severe pain down her left arm. She had a tube study on 04/01/2018 that wa s fine. It was flushing well in good position; however, Oncology has been having trouble with drawin g blood from it and the pain is severe. She still needs access for chemo. PAST MEDICAL HISTORY: Stage IIA right breast cancer, diabetes mellitus, myeloproliferative disorder, hypertension, obesity. PAST SURGICAL HISTORY: She has had a breast biopsy. She has had a hysterectomy, cholecystectomy, um bilical hernia repair, section. MEDICATIONS: Tramadol, amlodipine, Lantus, losartan, metformin. ALLERGIES: IODINE. FAMILY HISTORY: Sickle-cell breast cancer, diabetes, and hypertension. SOCIAL HISTORY: , 30-year pack year smoker, no alcohol. PHYSICAL EXAMINATION: VITAL SIGNS: Temperature 98, pulse 89, blood pressure 126/56. GENERAL: She is awake, alert, in no apparent distress. HEENT: Unremarkable. LUNGS: Clear. HEART: Regular rate and rhythm. ABDOMEN: Her MediPort appears swollen and tender. It appears hot with fluctuance. LABORATORY AND X-RAY FINDINGS: Her white count is 22.8, but she has myeloproliferative disorder. H&H 12 and 35, platelet count 922. ASSESSMENT: Concerning for possible MediPort infection. PLAN: Recommend removal of port and temporary PICC line.
[2018-04-04] MEDS: Aspirin 325 mg Enteric Coated Tablet PO SCH (09:17)
[2018-04-04] MEDS: Losartan 25 MG TAB PO SCH (09:18)
[2018-04-04] MEDS: Insulin Glargine 24 UNITS in Pre-Filled Syringe 1 EACH SC SCH ×2 (09:19→20:28)
[2018-04-04] MEDS: Amlodipine 5 MG TAB PO SCH (09:20)
[2018-04-04] MEDS: Famotidine/PF 20 mg/2ml Vial SLOW IVP SCH (10:53)
[2018-04-04] MEDS: Dexamethasone 4 MG TAB PO SCH ×2 (11:13→17:43)
[2018-04-04] MEDS: metFORMIN 500 MG TAB PO SCH ×2 (11:13→17:43)
[2018-04-04] MEDS ORDERED: Acetaminophen 1,000 MG in Premix Bag 1 BAG IVPB SCH (11:30)
--- NOTE | 2018-04-04 11:56 | PDOC.PN ---
- Subjective Encounter Start Date: 04/04/18 Encounter Start Time: 07:00 Pt seen for followup re: hypokalemia. Reports nausea, no vomiting. No chest pain. - Objective Resuscitation Status: Resuscitation Status FULL:Full Resuscitation MAR Reviewed: Yes Vital Signs & Weight: Vital Signs (12 hours) Temp Pulse Resp BP Pulse Ox 04/04/18 09:20 97 04/04/18 08:00 98.7 F 97 16 98 04/04/18 07:00 98.4 F 97 16 138/66 98 Weight Weight 178 lb 1 oz I&O: 04/03/18 04/04/18 04/05/18 06:59 06:59 06:59 Intake Total 1135.1 880 Balance 1135.1 880 Result Diagrams: 04/04/18 04:51 04/04/18 04:51 Additional Labs: Accuchecks 04/04/18 04/04/18 04/03/18 11:20 05:53 20:35 POC Glucose 143 H 212 H 250 H 04/03/18 16:25 POC Glucose 209 H Labs reviewed by me Phys Exam - Physical Examination Constitutional: NAD HEENT: moist MMs, sclera anicteric, oral pharynx no lesions, 2+ tonsils Neck: no nodes, no JVD, supple, full ROM Respiratory: no wheezing, no rales, no rhonchi, clear to auscultation bilateral Cardiovascular: RRR, no rub S1, s2 Gastrointestinal: soft, non-tender, no distention, positive bowel sounds Neurological: moves all 4 limbs Psychiatric: normal affect, A&O x 3 Skin: no rash Dx/Plan (1) Hypokalemia Code(s): E87.6 - HYPOKALEMIA Status: Acute Comment: replace potassium, recheck (2) Arm pain Status: Acute Comment: continue pain meds, pt to go for surgery today (3) DM2 (diabetes mellitus, type 2) Status: Chronic Comment: on accuchecks, insulin sliding scale (4) Breast cancer Status: Chronic Comment: chemo patient (5) HTN (hypertension) Code(s): I10 - ESSENTIAL (PRIMARY) HYPERTENSION Status: Chronic Comment: controlled (6) Myeloproliferative disorder Code(s): D47.1 - CHRONIC MYELOPROLIFERATIVE DISEASE Status: Chronic Comment : Improving, discontinue aspirin at the time of discharge (7) DKA (diabetic ketoacidoses) Code(s): E13.10 - OTH DIABETES MELLITUS WITH KETOACIDOSIS WITHOUT COMA Status : Resolved - Plan * . Review of Systems - Medications/Allergies Allergies/Adverse Reactions: Allergies Allergy/AdvReac Type Severity Reaction Status Date / Time Iodine and Iodide Containing Allergy "swelling" Verified 03/16/18 15:40 Produc morphine Allergy Emesis Verified 04/04/18 10:52 Medications: Current Medications Acetaminophen (Tylenol) 650 mg PO Q4H PRN PRN Reason: Headache/Fever or Pain Hydrocodone Bitart/Acetaminophen ([place] 5/325) 1 tab PO Q4H PRN PRN Reason: Mild-Moderate Pain (1-5) Last Admin: 04/03/18 19:20 Dose: 1 tab Hydrocodone Bitart/Acetaminophen ([place] 5/325) 2 tab PO Q4H PRN PRN Reason: Moderate to Severe Pain (6-10) Last Admin: 04/04/18 04:57 Dose: 2 tab Amlodipine Besylate (Norvasc) 5 mg PO DAILY [facility] Last Admin: 04/04/18 09:20 Dose: 5 mg Aspirin (Ecotrin) 325 mg PO DAILY [facility] Last Admin: 04/04/18 09:17 Dose: Not Given Cefazolin Sodium (Ancef) 2 gm SLOW IVP ONCALL-OR [facility] Dexamethasone (Decadron) 8 mg PO BID-WM [facility] Last Admin: 04/04/18 11:13 Dose: Not Given Dextrose/Water (Dextrose 50%) 25 gm IVP PRN PRN PRN Reason: HYPOGLYCEMIA PROTOCOL Enoxaparin Sodium (Lovenox) 40 mg SC 0900 [facility] Last Admin: 04/04/18 09:01 Dose: Not Given Famotidine (Pepcid) 20 mg SLOW IVP Q12HR [facility] Last Admin: 04/04/18 10:53 Dose: 20 mg Glucagon (Glucagon) 1 mg IM PRN PRN PRN Reason: HYPOGLYCEMIA PROTOCOL Dextrose/Water (D5w) 1,000 mls @ 0 mls/hr IV INF PRN; As Directed PRN Reason: HYPOGLYCEMIA PROTOCOL Insulin Glargine 24 units/ (Miscellaneous Medication) 0.24 mls @ 0 mls/hr SC BID [facility] Last Admin: 04/04/18 09:19 Dose: 0.24 mls Acetaminophen 1,000 mg/ Device 100 mls @ 400 mls/hr IVPB NOW [facility] Stop: 04/04/18 13:00 Insulin Human Lispro (Humalog) 0 units SC .MILD SLIDING SCALE PRN; Protocol PRN Reason: MILD SLIDING SCALE Last Admin: 04/03/18 21:10 Dose: 3 unit Losartan Potassium (Cozaar) 25 mg PO DAILY [facility] Last Admin: 04/04/18 09:18 Dose: 25 mg Metformin HCl (Glucophage) 1,000 mg PO BID-[facility] Last Admin: 04/04/18 11:13 Dose: Not Given Ondansetron HCl (Zofran) 4 mg IVP Q6H [facility] Last Admin: 04/04/18 09:16 Dose: Not Given Prochlorperazine Maleate (Compazine) 10 mg PO Q6H PRN PRN Reason: Nausea Promethazine HCl (Phenergan) 25 mg SLOW IVP Q8H PRN PRN Reason: Nausea Sodium Chloride (Flush - Normal Saline) 10 ml IVF Q12HR [facility] Last Admin: 04/04/18 09:17 Dose: 10 ml Sodium Chloride (Flush - Normal Saline) 10 ml IVF PRN PRN PRN Reason: Saline Flush Last Admin: 04/04/18 05:00 Dose: 10 ml
[2018-04-04] MEDS ORDERED: Potassium Chloride 20 MEQ in Sodium Chloride 0.9% 250 ML 250 ML IVPB SCH (12:15)
[2018-04-04] MEDS: Promethazine HCl 25 MG/ML VIAL SLOW IVP PRN (12:31)
[2018-04-04] MEDS ORDERED: PROPOFOL 200 MG/20 ML VIAL ONE (13:30)
[2018-04-04] MEDS ORDERED: Ondansetron HCl/PF 4 MG/2 ML Vial ONE (13:30)
[2018-04-04] MEDS ORDERED: Dexamethasone 20 MG/5 ML VIAL ONE (13:30)
[2018-04-04] MEDS ORDERED: CEFAZOLIN/Water 2 GM/20 ML SYRINGE ONE (14:37)
[2018-04-04] MEDS ORDERED: Bupivacaine HCl 0.25%/Epi 0.0005/PF 10 ML VIAL FS ONE (14:53)
[2018-04-04] MEDS ORDERED: Bupivacaine HCl 0.5%/Epinephrine 1:200,000/PF 30 ml Vial ONE (15:18)
[2018-04-04] MEDS ORDERED: Fentanyl 100 MCG/2 ML VIAL ONE (15:24)
[2018-04-04] MEDS: Piperacillin/Tazobactam 3.375 GM, IV Admixture Fee-Chemo 1 UNITS in Sodium Chloride 0.9... IVPB SCH ×2 (17:44→22:36)
--- NOTE | 2018-04-04 18:39 | OP ---
PREOPERATIVE DIAGNOSIS: Infected MediPort. SURGEON: Stanley Larson M.D. PROCEDURE PERFORMED: Removal of MediPort. INDICATIONS: The patient is a 52-year-old female who is undergoing chemotherapy, has been having a l ot of problems with the MediPort. She has had to have several tube studies of it. She has tremendou s pain in her left arm any time they use the MediPort. Tube sites have all been fine; however, over the last few days, it has become very painful and swollen. FINDINGS: Purulent fluid bathing the MediPort. PROCEDURE: After informed consent was obtained, the patient was taken to the operating room and give n general endotracheal anesthesia. She was placed in supine position. Her chest was prepped and meng ped in usual fashion. A transverse incision was performed through the scar. The subcu divided sharp ly. There was a cloudy fluid around the MediPort. This was sent for culture. The sutures were guanaco jeannie. The MediPort removed. The tip of the catheter was also sent for culture. The 3-0 Vicryl sutur e was used to occlude the tract to the vessel with [id number]. The cavity was thoroughly irrigat ed with saline and then packed open with Betadine gauze. Sterile bandage applied. Local anesthesia 0.25% Marcaine was infiltrated subcutaneously and deep. The patient tolerated the procedure well and was transferred to recovery in good condition.
[2018-04-04] MEDS: HumaLOG 300 UNITS/3 ML VIAL SC PRN (20:27)
[2018-04-04] MEDS: Famotidine 20 MG TAB PO SCH (20:29)
[2018-04-05] MEDS: HYDROcodone/Acetaminophen 5/325 mg Tablet PO PRN ×4 (02:06→20:34)
[2018-04-05] MEDS: Ondansetron HCl/PF 4 MG/2 ML Vial IVP SCH ×4 (03:50→23:08)
[2018-04-05] MEDS: Piperacillin/Tazobactam 3.375 GM, IV Admixture Fee-Chemo 1 UNITS in Sodium Chloride 0.9... IVPB SCH ×4 (04:15→22:11)
[2018-04-05 04:28] LABS: Anion Gap 14 mmol/L (10-20); BUN (Urea Nitrogen) 13 mg/dL (9.8-20.1); Calc. Creatinine Clearance 115 mL/min (70-130); Calcium 9.3 mg/dL (7.8-10.44); Carbon Dioxide 24 mmol/L (22-29); Chloride 104 mmol/L (98-107); Estimated GFR-MDRD Greater than 90; Glucose 346 mg/dL (70-105); Potassium 3.9 mmol/L (3.5-5.1); Sodium 138 mmol/L (136-145)
[2018-04-05 04:29] LABS: Band 34 % (5-11); Hemoglobin 10.7 g/dL (12.0-16.0); Lymphocytes 4 % (21-51); MDiff Complete? YES; Mean Corpuscular HGB CONC 32.9 g/dL (32.0-36.0); Mean Corpuscular Hemoglobin 26.1 pg (27.0-31.0); Mean Corpuscular Volume 79.6 fL (78.0-98.0); Mean Platelet Volume 9.5 fL (7.4-10.4); Metamyelocyte 2 % (0-0); Monocytes 1 % (0-10); Myelocyte 2 % (0-0); Neutrophil 57 % (42-75); Nucleated RBC 1 % (0); PLT Morphology Comment Appears Increased; Platelet Count 489 thou/uL (130-400); RBC Distribution Width 16.9 % (11.5-14.5); Red Blood Cell (RBC) Count 4.09 mill/uL (4.20-5.40); White Blood Cell (WBC) Count 28.9 thou/uL (4.8-10.8)
[2018-04-05] MEDS: HumaLOG 300 UNITS/3 ML VIAL SC PRN ×3 (05:37→20:39)
[2018-04-05] MEDS: Losartan 25 MG TAB PO SCH (12:12)
[2018-04-05] MEDS: metFORMIN 500 MG TAB PO SCH ×2 (12:13→16:54)
[2018-04-05] MEDS: Amlodipine 5 MG TAB PO SCH (12:13)
[2018-04-05] MEDS: Dexamethasone 4 MG TAB PO SCH (12:13)
[2018-04-05] MEDS: Famotidine 20 MG TAB PO SCH ×2 (12:13→20:34)
[2018-04-05] MEDS: Aspirin 325 mg Enteric Coated Tablet PO SCH (12:16)
[2018-04-05] MEDS: Enoxaparin Sodium 40 MG/0.4 ML SYRINGE SC SCH (12:17)
[2018-04-05] MEDS: Insulin Glargine 24 UNITS in Pre-Filled Syringe 1 EACH SC SCH ×2 (12:21→20:37)
--- NOTE | 2018-04-05 12:47 | PDOC.PN ---
- Subjective Encounter Start Date: 04/05/18 Encounter Start Time: 12:46 Subjective: no fever, chills - Objective Resuscitation Status: Resuscitation Status FULL:Full Resuscitation MAR Reviewed: Yes Vital Signs & Weight: Vital Signs (12 hours) Temp Pulse Resp BP Pulse Ox 04/05/18 12:13 94 04/05/18 07:58 98.3 F 94 16 97 04/05/18 07:00 98.3 F 94 16 147/65 H 97 04/05/18 03:52 98.0 F 97 16 156/73 H 95 Weight Weight 178 lb 1 oz I&O: 04/04/18 04/05/18 04/06/18 06:59 06:59 06:59 Intake Total 880 760 Balance 880 760 Result Diagrams: 04/05/18 03:50 04/05/18 03:50 Additional Labs: Accuchecks 04/05/18 04/04/18 04/04/18 05:32 20:23 17:31 POC Glucose 338 H 276 H 149 H 04/04/18 14:18 POC Glucose 127 H Phys Exam - Physical Examination Neck: no JVD Respiratory: clear to auscultation bilateral Cardiovascular: RRR, no significant murmur Gastrointestinal: soft, positive bowel sounds Musculoskeletal: edema present Dx/Plan (1) Arm pain Status: Acute Comment: continue pain meds, pt to go for surgery today (2) Hypokalemia Code(s): E87.6 - HYPOKALEMIA Status: Acute Comment: replace potassium, recheck (3) Breast cancer Status: Chronic Comment: chemo patient (4) DM2 (diabetes mellitus, type 2) Status: Chronic Qualifiers: Diabetes mellitus ferry terminal agent insulin use: without residential use Diabetes mellitus complication status: without complication Qualified Code(s): E11.9 - Type 2 diabetes mellitus without complications Comment: on accuchecks, insulin sliding scale (5) HTN (hypertension) Code(s): I10 - ESSENTIAL (PRIMARY) HYPERTENSION Status: Chronic Qualifiers: Hypertension type: essential hypertension Qualified Code(s): I10 - Essential (primary) hypertension Comment: controlled (6) Myeloproliferative disorder Code(s): D47.1 - CHRONIC MYELOPROLIFERATIVE DISEASE Status: Chronic Comment : Improving, discontinue aspirin at the time of discharge (7) Diabetes mellitus Code(s): E11.9 - TYPE 2 DIABETES MELLITUS WITHOUT COMPLICATIONS Status: Chronic Qualifiers: Diabetes mellitus type: type 2 Diabetes mellitus ferry terminal agent insulin use: without ferry terminal agent use Diabetes mellitus complication status: without complication Qualified Code(s): E11.9 - Type 2 diabetes mellitus without complications (8) Primary thrombocytosis Code(s): D47.3 - ESSENTIAL (HEMORRHAGIC) THROMBOCYTHEMIA Status: Acute (9) Tobacco abuse Code(s): Z72.0 - TOBACCO USE Status: Acute - Plan post removal mediport, now has picc line -: on iv antibx, C&S neg to dare -: on po decadron -: discuss with oncology * .
--- NOTE | 2018-04-05 13:39 | SPC ---
SONOGRPAHIC GUIDED LEFT UPPER EXTREMITY PICC PLACEMENT: HISTORY: Infection. Need for fdc antibiotics. FINDINGS: After explaining the procedure and answering all questions, the left upper extremity was prepped and draped in the usual sterile fashion. Sterile technique, local anesthesia, sonographic guidance, and a 22-gauge needle were used to carefully access the left cephalic vein. Standard technique was used to carefully place the tip of a 5 Serbian dual-lumen PICC so that the tip lies at the level of the sup erior vena cava. The catheter was flushed and secured externally. Fluoro time=0 seconds. IMPRESSION: Left upper extremity PICC is ready for use. POS: [facility]
[2018-04-05] MEDS: Promethazine HCl 25 MG/ML VIAL SLOW IVP PRN (22:22)
[2018-04-06] MEDS: Ondansetron HCl/PF 4 MG/2 ML Vial IVP SCH ×2 (04:00→10:32)
[2018-04-06] MEDS: Piperacillin/Tazobactam 3.375 GM, IV Admixture Fee-Chemo 1 UNITS in Sodium Chloride 0.9... IVPB SCH ×2 (05:41→10:32)
[2018-04-06 06:15] LABS: Anion Gap 9 mmol/L (10-20); BUN (Urea Nitrogen) 10 mg/dL (9.8-20.1); Calc. Creatinine Clearance 145 mL/min (70-130); Calcium 9.1 mg/dL (7.8-10.44); Carbon Dioxide 27 mmol/L (22-29); Chloride 108 mmol/L (98-107); Estimated GFR-MDRD Greater than 90; Glucose 147 mg/dL (70-105); Potassium 3.2 mmol/L (3.5-5.1); Sodium 141 mmol/L (136-145)
[2018-04-06 06:35] LABS: Band 3 % (5-11); Hemoglobin 9.5 g/dL (12.0-16.0); Hypochromia SLIGHT = 6-15 cells (100X) (0-5/hpf); Lymphocytes 15 % (21-51); MDiff Complete? YES; Mean Corpuscular HGB CONC 34.3 g/dL (32.0-36.0); Mean Corpuscular Hemoglobin 27.2 pg (27.0-31.0); Mean Corpuscular Volume 79.3 fL (78.0-98.0); Mean Platelet Volume 8.9 fL (7.4-10.4); Monocytes 4 % (0-10); Neutrophil 78 % (42-75); PLT Morphology Comment Appears Increased; Platelet Count 421 thou/uL (130-400); RBC Distribution Width 16.4 % (11.5-14.5); Red Blood Cell (RBC) Count 3.48 mill/uL (4.20-5.40); White Blood Cell (WBC) Count 15.6 thou/uL (4.8-10.8)
[2018-04-06 07:46] VITALS: TEMP 98.4
[2018-04-06] MEDS: Aspirin 325 mg Enteric Coated Tablet PO SCH (08:44)
[2018-04-06] MEDS: metFORMIN 500 MG TAB PO SCH (08:44)
[2018-04-06] MEDS: Amlodipine 5 MG TAB PO SCH (08:45)
[2018-04-06] MEDS: Enoxaparin Sodium 40 MG/0.4 ML SYRINGE SC SCH (08:45)
[2018-04-06] MEDS: Famotidine 20 MG TAB PO SCH (08:46)
[2018-04-06] MEDS: Insulin Glargine 24 UNITS in Pre-Filled Syringe 1 EACH SC SCH (08:46)
[2018-04-06] MEDS: Losartan 25 MG TAB PO SCH (08:46)
[2018-04-06 08:54] VITALS: BP 144/65
--- NOTE | 2018-04-06 10:24 | PQF ---
CLINICAL DOCUMENTATION IMPROVEMENT CLARIFICATION FORM: ICD-10 Updated PLEASE DO AN ADDENDUM TO THE PROGRESS NOTE WITH ANY DOCUMENTATION UPDATES OR ADDITIONS AND CARRY THROUGH TO DC SUMMARY. THANK YOU. DATE: 04/06 ATTN: DR. DEBORAH WADE Please exercise your independent, professional judgment in responding to the clarification form. Clinical indicators are provided on the bottom of this form for your review. Please check appropriate box(s): Conflicting documentation was noted in the Medical Record, please clarify if patient is being treated/monitored for: [ ] ARM PAIN, ACUTE [ x ] L ARM PAIN D/T INFECTED MEDIPORT [ ] L ARM PAIN D/T MALFUNCTIONING MEDIPORT [ ] Other diagnosis [ ] Unable to determine For continuity of documentation, please document condition throughout progress notes and discharge summary. Thank You. CLINICAL INDICATORS - SIGNS / SYMPTOMS/ LABS PHYSICIAN H&P DOCUMENTATION 04/02: HX OF PRESENT ILLNESS: ...SHE SAYS THAT AFTER THE CHEMOTHERAPY TREATMENT SHE STARTED HAVING SEVERE PAIN THAT WENT INTO HER LEFT UPPER EXTREMITY. PHYSICAL EXAM: SKIN & INTEGUMENT: AT THE MEDIPORT SITE THERE IS SOME SURROUNDING EDEMA & TENDERNESS BUT THERE IS NO REDNESS & THERE IS NO DRAINAGE. ASSESSMENT: 1) ...L ARM PAIN FOLLOWING CHEMO. IT IS UNCLEAR WHETHER OR NOT THIS IS A REACTION TO THE CHEMO OR SOME TYPE OF MALFUNCTIONING OF THE MEDIPORT. ...WE WILL HAVE HER SURGEON LOOK AT THE MEDIPORT GENERAL SURGEON H&P 04/03: HX OF PRESENT ILLNESS: ...EVERY TIME THEY ACCESS TO INFUSE, SHE COMPLAINS OF SEVERE PAIN DOWN HER LEFT ARM. SHE HAD A TUBE STUDY ON 04/01 & THAT WAS FINE. HOWEVER, ONCOLOGY HAS BEEN HAVING TROUBLE DRAWING BLOOD FROM IT & THE PAIN IS SEVERE. PHYSICAL EXAM: HER MEDIPORT APPEARS SWOLLEN & TENDER. IT APPEARS HOT W/FLUCTUANCE. ASSESSMENT: CONCERNING FOR POSSIBLE MEDIPORT INFECTION ONCOLOGY CONSULT 04/02: HX OF PRESENT ILLNESS: CURRENTLY, SHE COMPLAINS OF PAIN IN HER LEFT CHEST REGION. SHE IS TENDER TO PALPATION AT THE MEDIPORT SITE. THERE IS NO ERYTHEMA NOTED. ASSESSMENT: 2) L UE SWELLING & TENDERNESS OF HER MEDIPORT SITE. DISCUSSION: THE PATIENT'S MEDIPORT WILL BE EVALUATED BY HER SURGEON. I SUSPECT THAT IT MAY HAVE MALFUNCTIONED AFTER TREATMENT. ATTENDING PN 04/03 - : DX/PLAN: 1) ARM PAIN, ACUTE OP REPORT 04/04: REMOVAL OF MEDIPORT. ...THERE WAS CLOUDY FLUID AROUND THE MEDIPORT. THIS WAS SENT FOR CULTURE. ...THE TIP OF THE CATHETER WAS ALSO SENT FOR CULTURE. RISK FACTOR: L MEDIPORT W/ACUTE L ARM PAIN S/P CHEMO ADMINISTRATION TREATMENT: GENERAL SURGEON CONSULT MEDIPORT REMOVAL (04/04) IV ANTIBIOTICS (PIPERACILLIN/TAZOBACTAM 04/04 - PRESENT) CATHETER TIP & MEDIPORT FLUID CULTURES (NEG GROWTH TO DATE) THANK YOU! Georgiana (This form is maintained as a part of the permanent medical record) 2014 [employer]. All Rights Reserved Georgiana Wahl RN, BSN [email or web address] Office: [phone] [facility] HOSPITALAlexi
[2018-04-06] MEDS: HYDROcodone/Acetaminophen 5/325 mg Tablet PO PRN (10:31)
--- NOTE | 2018-04-06 11:48 | DIS ---
TRANSFER OF CARE NOTE DATE OF ADMISSION: 04/02/2018 DATE OF DISCHARGE: 04/06/2018 DISPOSITION: Discharged home. PRIMARY CARE PROVIDER: Dr. Clarissa Smiley FINAL DIAGNOSES: 1. Infected MediPort, status post removal. 2. Post-PICC line. 3. Diabetes mellitus type 2. 4. Breast cancer on chemotherapy. 5. Hypertension. 6. Myeloproliferative disorder. 7. Tobacco abuse. 8. Diabetic ketoacidosis. DISCHARGE MEDICATIONS: Prochlorperazine 10 mg p.o. q.4. p.r.n., amlodipine 5 mg a day, Glucophage 1 000 mg twice a day, hydrocodone 5/325 5 mg p.o. q.4 hours p.r.n., losartan 25 mg a day, insulin Glarg ine 24 units subcu twice a day. ALLERGIES: IODINATED CONTRAST, MORPHINE. DIET: Diabetic diet. HOSPITAL COURSE: The patient admitted with arm pain. Pain noted from the MediPort site. Her initia l laboratory; white count 22.8, platelet count 922,000, hemoglobin 12.4. Initial sugars were high in the 700 range with some mild decrease in carbon dioxide of 19, creatinine 1.12, BUN 19, sodium 131. The patient's consultations obtained were with Dr. Stanley Larson of General Surgery, Oncology Jyoti sanchez. On 04/04/2018 the MediPort was removed. Wound was left open. She is receiving wound care. On 04/05 a PICC line was placed. Subsequent laboratory, her blood sugars have come down rapidly to the controlled range, the last one is 152. Her CO2 has returned to normal, her creatinine has returned to normal. Her sodium has retur quynh to normal. Her white count is still 15.6, hemoglobin 9.5, platelet count 421,000. The situation was discussed with Dr. Larson and Jyoti Briceño NP for Oncology. The patient is safe to be discharged. She will be seen by Home Health for wound care. FOLLOWUP: Follow up will be with Oncology for chemotherapy in 48 hours.
== END 2018-04-06 15:40 | disposition home health service (06) | DRG 314 ==
LOC: ERS 21:52 → ERHOLD 04-02 00:42 → IMCU/EMU 04-02 03:35 → ONC 04-02 12:21
PROVIDERS: ADMIT Internal Medicine; ATTEND Internal Medicine
PROC: 0JPT0WZ Removal of Totally Implantable Vascular Access Device from Trunk Subcutaneous Tissue and Fascia, Open Approach (ICD-10-PCS; principal; 2018-04-04)
PROC: 02HV33Z Insertion of Infusion Device into Superior Vena Cava, Percutaneous Approach (ICD-10-PCS; 2018-04-05)
DX: T80.212A Local infection due to central venous catheter, initial encounter (principal); E11.10 Type 2 diabetes mellitus with ketoacidosis without coma; C94.6 Myelodysplastic disease, not elsewhere classified; R20.2 Paresthesia of skin; C50.111 Malignant neoplasm of central portion of right female breast; E11.22 Type 2 diabetes mellitus with diabetic chronic kidney disease; F32.9 Major depressive disorder, single episode, unspecified; F17.210 Nicotine dependence, cigarettes, uncomplicated; I10 Essential (primary) hypertension; T38.0X5A Adverse effect of glucocorticoids and synthetic analogues, initial encounter; Y92.9 Unspecified place or not applicable; E86.9 Volume depletion, unspecified; E87.6 Hypokalemia; M19.90 Unspecified osteoarthritis, unspecified site; E66.01 Morbid (severe) obesity due to excess calories; D47.3 Essential (hemorrhagic) thrombocythemia; Y83.1 Surgical operation with implant of artificial internal device as the cause of abnormal reaction of the patient, or of later complication, without mention of misadventure at the time of the procedure; Z95.828 Presence of other vascular implants and grafts; Z17.1 Estrogen receptor negative status [ER-]; Z92.21 Personal history of antineoplastic chemotherapy; Z91.048 Other nonmedicinal substance allergy status; Z79.52 Long term (current) use of systemic steroids; Z79.899 Other long term (current) drug therapy; Z79.1 Long term (current) use of non-steroidal anti-inflammatories (NSAID); Z79.84 Long term (current) use of oral hypoglycemic drugs; Z87.442 Personal history of urinary calculi; Z90.710 Acquired absence of both cervix and uterus; Z90.49 Acquired absence of other specified parts of digestive tract; Z87.19 Personal history of other diseases of the digestive system; Z80.3 Family history of malignant neoplasm of breast; Z80.41 Family history of malignant neoplasm of ovary; Z80.42 Family history of malignant neoplasm of prostate; Z80.0 Family history of malignant neoplasm of digestive organs; Z68.29 Body mass index [BMI] 29.0-29.9, adult; Z83.2 Family history of diseases of the blood and blood-forming organs and certain disorders involving the immune mechanism; Z83.3 Family history of diabetes mellitus; Z82.49 Family history of ischemic heart disease and other diseases of the circulatory system
CPT/HCPCS: 36415; 36416; 36569; 36598; 70450; 80048; 80053; 81003; 81015; 82010; 82553; 83605; 83690; 83735; 83930; 84484; 85025; 87070; 87071; 87205; 93005; 96361; 96365; 96366; 96372; 96375; 96377; 96413; 96417; A4216; C1751; J0131; J0670; J1100; J1200; J1642; J1644; J1650; J1815; J2270; J2405; J2469; J2505; J2543; J2550; J2704; J3010; J3480; J7050; J8540; J9045; J9171; J9355; S0028

== ENCOUNTER 2018-04-08 11:36 | Day surgery (SDC) | payer OTHER ==
[2018-04-08] MEDS ORDERED: Sodium Chloride 0.9% 40 ML ONE (11:48)
[2018-04-08 11:52] VITALS: BP 163/93; TEMP 97.5
[2018-04-08] MEDS ORDERED: SODIUM CHLORIDE 0.9% IVPB SCH ×3 (12:00→12:45)
[2018-04-08] MEDS ORDERED: TRASTUZUMAB IVPB SCH ×3 (12:00→12:45)
== END 2018-04-08 15:39 | disposition home or self-care (01) ==
LOC: ONC/OP 11:36
PROVIDERS: ATTEND Internal Medicine Medical Oncology
DX: Z51.11 Encounter for antineoplastic chemotherapy (principal); C50.411 Malignant neoplasm of upper-outer quadrant of right female breast; D72.828 Other elevated white blood cell count; E11.9 Type 2 diabetes mellitus without complications; I10 Essential (primary) hypertension; M19.90 Unspecified osteoarthritis, unspecified site; F17.210 Nicotine dependence, cigarettes, uncomplicated; Z91.041 Radiographic dye allergy status; Z79.82 Long term (current) use of aspirin; Z79.899 Other long term (current) drug therapy; Z17.1 Estrogen receptor negative status [ER-]
CPT/HCPCS: 96413; A4216; J1642; J7050; J9355

== ENCOUNTER 2018-04-15 10:27 | Day surgery (SDC) | payer OTHER ==
[2018-04-15] MEDS ORDERED: Sodium Chloride 0.9% 30 ML ONE (10:41)
[2018-04-15] MEDS ORDERED: SODIUM CHLORIDE 0.9% IVPB SCH ×2 (10:45→11:15)
[2018-04-15] MEDS ORDERED: TRASTUZUMAB IVPB SCH ×2 (10:45→11:15)
[2018-04-15] MEDS ORDERED: Sodium Chloride 0.9% 10 ML ONE (10:52)
[2018-04-15 11:38] VITALS: BP 175/88; TEMP 98.6
== END 2018-04-15 18:50 | disposition home or self-care (01) ==
LOC: ONC/OP 10:27
PROVIDERS: ATTEND Internal Medicine Medical Oncology
DX: Z51.11 Encounter for antineoplastic chemotherapy (principal); C50.411 Malignant neoplasm of upper-outer quadrant of right female breast; D72.828 Other elevated white blood cell count; E11.9 Type 2 diabetes mellitus without complications; I10 Essential (primary) hypertension; M19.90 Unspecified osteoarthritis, unspecified site; F17.210 Nicotine dependence, cigarettes, uncomplicated; Z91.041 Radiographic dye allergy status; Z17.1 Estrogen receptor negative status [ER-]; Z79.82 Long term (current) use of aspirin; Z79.899 Other long term (current) drug therapy
CPT/HCPCS: 96413; 99211; A4216; G0463; J1642; J7050; J9355

== ENCOUNTER 2018-04-22 11:13 | Day surgery (SDC) | payer OTHER ==
[2018-04-22] MEDS ORDERED: SODIUM CHLORIDE 0.9% IVPB SCH ×3 (11:30→12:30)
[2018-04-22] MEDS ORDERED: PALONOSETRON HCL 0.05 MG/ML 5 ML VIAL IVP SCH (11:30)
[2018-04-22] MEDS ORDERED: Pegfilgrastim 6 MG/0.6 ML Delivery Kit SQ SCH (11:30)
[2018-04-22] MEDS ORDERED: Dexamethasone 20 MG in Sodium Chloride 0.9% 50 ML IVPB SCH (11:30)
[2018-04-22] MEDS ORDERED: DOCEtaxel 140 MG in Sodium Chloride 0.9% 250 ML 250 ML IVPB SCH (11:30)
[2018-04-22] MEDS ORDERED: TRASTUZUMAB IVPB SCH (11:30)
[2018-04-22] MEDS ORDERED: Sodium Chloride 0.9% 30 ML ONE (11:31)
[2018-04-22] MEDS ORDERED: CARBOPLATIN IVPB SCH ×2 (12:30)
[2018-04-22 17:08] VITALS: BP 163/94; TEMP 97.9
== END 2018-04-22 17:12 | disposition home or self-care (01) ==
LOC: ONC/OP 11:13
PROVIDERS: ATTEND Internal Medicine Medical Oncology
DX: Z51.11 Encounter for antineoplastic chemotherapy (principal); C50.411 Malignant neoplasm of upper-outer quadrant of right female breast; D72.828 Other elevated white blood cell count; E11.9 Type 2 diabetes mellitus without complications; I10 Essential (primary) hypertension; M19.90 Unspecified osteoarthritis, unspecified site; F17.210 Nicotine dependence, cigarettes, uncomplicated; Z79.4 Long term (current) use of insulin; Z79.899 Other long term (current) drug therapy; Z91.041 Radiographic dye allergy status; Z17.1 Estrogen receptor negative status [ER-]
CPT/HCPCS: 80053; 82248; 83615; 84100; 84550; 96367; 96375; 96377; 96413; 96417; A4216; J1100; J1642; J2469; J2505; J7050; J9045; J9171; J9355

== ENCOUNTER 2018-04-29 09:52 | Day surgery (SDC) | payer OTHER ==
[2018-04-29] MEDS ORDERED: SODIUM CHLORIDE 0.9% IVPB SCH (10:15)
[2018-04-29] MEDS ORDERED: TRASTUZUMAB IVPB SCH (10:15)
[2018-04-29] MEDS ORDERED: Sodium Chloride 0.9% 60 ML ONE (10:38)
[2018-04-29 10:44] VITALS: BP 137/63; TEMP 98.1
== END 2018-04-29 12:15 | disposition home or self-care (01) ==
LOC: ONC/OP 09:52
PROVIDERS: ATTEND Internal Medicine Medical Oncology
DX: Z51.11 Encounter for antineoplastic chemotherapy (principal); C50.411 Malignant neoplasm of upper-outer quadrant of right female breast; D72.828 Other elevated white blood cell count; E11.9 Type 2 diabetes mellitus without complications; I10 Essential (primary) hypertension; M19.90 Unspecified osteoarthritis, unspecified site; F17.210 Nicotine dependence, cigarettes, uncomplicated; Z79.4 Long term (current) use of insulin; Z79.899 Other long term (current) drug therapy; Z91.041 Radiographic dye allergy status; Z17.1 Estrogen receptor negative status [ER-]; Z79.82 Long term (current) use of aspirin
CPT/HCPCS: 96413; A4216; J1642; J7050; J9355

== ENCOUNTER 2018-05-06 10:04 | Day surgery (SDC) | payer OTHER ==
[2018-05-06] MEDS ORDERED: TRASTUZUMAB IVPB SCH (10:30)
[2018-05-06] MEDS ORDERED: SODIUM CHLORIDE 0.9% IVPB SCH (10:30)
[2018-05-06 11:23] VITALS: BP 140/66; TEMP 97.9
[2018-05-06] MEDS ORDERED: Sodium Chloride 0.9% 20 ML ONE (11:29)
== END 2018-05-06 17:03 | disposition home or self-care (01) ==
LOC: ONC/OP 10:04
PROVIDERS: ATTEND Internal Medicine Medical Oncology
DX: Z51.11 Encounter for antineoplastic chemotherapy (principal); C50.411 Malignant neoplasm of upper-outer quadrant of right female breast; D72.828 Other elevated white blood cell count; E11.9 Type 2 diabetes mellitus without complications; I10 Essential (primary) hypertension; Z91.041 Radiographic dye allergy status; Z87.891 Personal history of nicotine dependence; Z79.4 Long term (current) use of insulin; Z79.899 Other long term (current) drug therapy
CPT/HCPCS: 96413; A4216; J1642; J7050; J9355

== ENCOUNTER 2018-05-13 10:36 | Day surgery (SDC) | payer OTHER ==
[2018-05-13] MEDS ORDERED: Pegfilgrastim 6 MG/0.6 ML Delivery Kit SQ SCH (11:00)
[2018-05-13] MEDS ORDERED: PALONOSETRON HCL 0.05 MG/ML 5 ML VIAL IVP SCH (11:00)
[2018-05-13] MEDS ORDERED: Dexamethasone 10 MG/ML VIAL SLOW IVP SCH (11:00)
[2018-05-13] MEDS ORDERED: DOCEtaxel 140 MG in Sodium Chloride 0.9% 250 ML 250 ML IVPB SCH (11:00)
[2018-05-13] MEDS ORDERED: SODIUM CHLORIDE 0.9% IVPB SCH ×2 (11:00)
[2018-05-13] MEDS ORDERED: TRASTUZUMAB IVPB SCH (11:00)
[2018-05-13] MEDS ORDERED: CARBOPLATIN IVPB SCH (11:00)
[2018-05-13] MEDS ORDERED: Dexamethasone 4 mg/ml Vial SLOW IVP SCH (11:15)
[2018-05-13 13:05] VITALS: BP 179/86; TEMP 97.9
== END 2018-05-13 16:34 | disposition home or self-care (01) ==
LOC: ONC/OP 10:36
PROVIDERS: ATTEND Internal Medicine Medical Oncology
DX: Z51.11 Encounter for antineoplastic chemotherapy (principal); C50.411 Malignant neoplasm of upper-outer quadrant of right female breast; D72.828 Other elevated white blood cell count; E11.9 Type 2 diabetes mellitus without complications; I10 Essential (primary) hypertension; F17.200 Nicotine dependence, unspecified, uncomplicated; Z91.041 Radiographic dye allergy status; Z79.4 Long term (current) use of insulin; Z79.899 Other long term (current) drug therapy
CPT/HCPCS: 36415; 80053; 82248; 83615; 84100; 84550; 96375; 96377; 96413; 96417; J1100; J2469; J2505; J7050; J9045; J9171; J9355

== ENCOUNTER 2018-05-20 09:28 | Day surgery (SDC) | payer OTHER ==
[2018-05-20] MEDS ORDERED: TRASTUZUMAB IVPB SCH (10:15)
[2018-05-20] MEDS ORDERED: SODIUM CHLORIDE 0.9% IVPB SCH (10:15)
[2018-05-20] MEDS ORDERED: Sodium Chloride 0.9% 40 ML ONE (10:39)
== END 2018-05-20 12:33 | disposition home or self-care (01) ==
LOC: ONC/OP 09:28
PROVIDERS: ATTEND Internal Medicine Medical Oncology
DX: Z51.11 Encounter for antineoplastic chemotherapy (principal); C50.411 Malignant neoplasm of upper-outer quadrant of right female breast; D72.828 Other elevated white blood cell count; Z88.5 Allergy status to narcotic agent; Z91.041 Radiographic dye allergy status; Z79.4 Long term (current) use of insulin; Z79.899 Other long term (current) drug therapy
CPT/HCPCS: 96413; A4216; J1642; J7050; J9355

== ENCOUNTER 2018-05-27 09:24 | Day surgery (SDC) | payer OTHER ==
[2018-05-27] MEDS ORDERED: Sodium Chloride 0.9% 40 ML ONE (09:30)
[2018-05-27] MEDS ORDERED: TRASTUZUMAB IVPB SCH (09:45)
[2018-05-27] MEDS ORDERED: SODIUM CHLORIDE 0.9% IVPB SCH (09:45)
[2018-05-27 10:42] VITALS: BP 142/67; TEMP 98.1
== END 2018-05-27 11:27 | disposition home or self-care (01) ==
LOC: ONC/OP 09:24
PROVIDERS: ATTEND Internal Medicine Medical Oncology
DX: Z51.11 Encounter for antineoplastic chemotherapy (principal); C50.411 Malignant neoplasm of upper-outer quadrant of right female breast; D72.828 Other elevated white blood cell count; Z91.041 Radiographic dye allergy status
CPT/HCPCS: 96413; A4216; J1642; J7050; J9355

== ENCOUNTER 2018-06-03 10:02 | Day surgery (SDC) | payer OTHER ==
[2018-06-03] MEDS ORDERED: CARBOPLATIN IVPB SCH (11:00)
[2018-06-03] MEDS ORDERED: SODIUM CHLORIDE 0.9% IVPB SCH ×3 (11:00→12:45)
[2018-06-03] MEDS ORDERED: Palonosetron HCl 0.25 MG in Sodium Chloride 0.9% 50 ML IVPB SCH (11:00)
[2018-06-03] MEDS ORDERED: Pegfilgrastim 6 MG/0.6 ML Delivery Kit SQ SCH (11:00)
[2018-06-03] MEDS ORDERED: Dexamethasone 20 MG in Sodium Chloride 0.9% 50 ML IVPB SCH (11:00)
[2018-06-03] MEDS ORDERED: DOCEtaxel 140 MG in Sodium Chloride 0.9% 250 ML 250 ML IVPB SCH (11:00)
[2018-06-03 11:13] VITALS: BP 188/88; TEMP 97.7
[2018-06-03] MEDS ORDERED: TRASTUZUMAB IVPB SCH ×2 (11:15→12:45)
== END 2018-06-03 15:50 | disposition home or self-care (01) ==
LOC: ONC/OP 10:02
PROVIDERS: ATTEND Internal Medicine Medical Oncology
DX: Z51.11 Encounter for antineoplastic chemotherapy (principal); C50.411 Malignant neoplasm of upper-outer quadrant of right female breast; D72.828 Other elevated white blood cell count; E11.9 Type 2 diabetes mellitus without complications; I10 Essential (primary) hypertension; F17.210 Nicotine dependence, cigarettes, uncomplicated; M19.90 Unspecified osteoarthritis, unspecified site; Z17.1 Estrogen receptor negative status [ER-]; Z91.041 Radiographic dye allergy status; Z79.82 Long term (current) use of aspirin; Z98.890 Other specified postprocedural states; Z79.84 Long term (current) use of oral hypoglycemic drugs
CPT/HCPCS: 80053; 82248; 83615; 84100; 84550; 96375; 96377; 96413; 96417; J1100; J2469; J2505; J7050; J9045; J9171; J9355

== ENCOUNTER 2018-06-09 14:41 | Day surgery (SDC) | payer OTHER ==
[2018-06-09] MEDS ORDERED: SODIUM CHLORIDE 0.9% IVPB SCH (15:15)
[2018-06-09] MEDS ORDERED: TRASTUZUMAB IVPB SCH (15:15)
[2018-06-09] MEDS ORDERED: Sodium Chloride 0.9% 20 ML ONE (15:29)
[2018-06-09 16:47] VITALS: BP 147/71; TEMP 98.1
== END 2018-06-09 16:48 | disposition home or self-care (01) ==
LOC: ONC/OP 14:41
PROVIDERS: ATTEND Internal Medicine Medical Oncology
DX: Z51.11 Encounter for antineoplastic chemotherapy (principal); C50.411 Malignant neoplasm of upper-outer quadrant of right female breast; D72.828 Other elevated white blood cell count; Z91.041 Radiographic dye allergy status
CPT/HCPCS: 96413; A4216; J1642; J7050; J9355

== ENCOUNTER 2018-06-17 09:12 | Day surgery (SDC) | payer OTHER ==
[2018-06-17] MEDS ORDERED: Sodium Chloride 0.9% 40 ML ONE (09:24)
[2018-06-17 09:41] VITALS: BP 128/69; TEMP 98.2
[2018-06-17] MEDS ORDERED: SODIUM CHLORIDE 0.9% IVPB SCH (09:45)
[2018-06-17] MEDS ORDERED: TRASTUZUMAB IVPB SCH (09:45)
== END 2018-06-17 13:58 | disposition home or self-care (01) ==
LOC: ONC/OP 09:12
PROVIDERS: ATTEND Internal Medicine Medical Oncology
DX: Z51.11 Encounter for antineoplastic chemotherapy (principal); C50.411 Malignant neoplasm of upper-outer quadrant of right female breast; D72.828 Other elevated white blood cell count; Z91.041 Radiographic dye allergy status
CPT/HCPCS: 96413; A4216; J1642; J7050; J9355

== ENCOUNTER 2018-06-24 09:52 | Day surgery (SDC) | payer OTHER ==
[2018-06-24] MEDS ORDERED: DOCEtaxel 140 MG in Sodium Chloride 0.9% 250 ML 250 ML IVPB SCH (10:15)
[2018-06-24] MEDS ORDERED: CARBOPLATIN IVPB SCH (10:15)
[2018-06-24] MEDS ORDERED: TRASTUZUMAB IVPB SCH ×2 (10:15→10:30)
[2018-06-24] MEDS ORDERED: Pegfilgrastim Onpro 6 MG/0.6 ML SQ SCH (10:15)
[2018-06-24] MEDS ORDERED: SODIUM CHLORIDE 0.9% IVPB SCH ×4 (10:15→10:30)
[2018-06-24] MEDS ORDERED: DEXAMETHASONE IVPB SCH (10:15)
[2018-06-24] MEDS ORDERED: Palonosetron HCl 0.25 MG in Sodium Chloride 0.9% 50 ML IVPB SCH (10:15)
[2018-06-24 10:25] VITALS: BP 144/70; TEMP 98.2
[2018-06-24] MEDS ORDERED: Dexamethasone Sod Phosphate 20 MG in Sodium Chloride 0.9% 50 ML IVPB SCH (10:30)
== END 2018-06-24 14:59 | disposition home or self-care (01) ==
LOC: ONC/OP 09:52
PROVIDERS: ATTEND Internal Medicine Medical Oncology
DX: Z51.11 Encounter for antineoplastic chemotherapy (principal); C50.411 Malignant neoplasm of upper-outer quadrant of right female breast; D72.828 Other elevated white blood cell count; E11.9 Type 2 diabetes mellitus without complications; I10 Essential (primary) hypertension; F17.200 Nicotine dependence, unspecified, uncomplicated; Z79.4 Long term (current) use of insulin; Z79.899 Other long term (current) drug therapy
CPT/HCPCS: 36415; 80053; 82248; 83615; 84100; 84550; 96375; 96377; 96413; 96417; J1100; J2469; J2505; J7050; J9045; J9171; J9355

== ENCOUNTER 2018-07-01 09:12 | Day surgery (SDC) | payer OTHER ==
[2018-07-01] MEDS ORDERED: TRASTUZUMAB IVPB SCH ×2 (09:30)
[2018-07-01] MEDS ORDERED: SODIUM CHLORIDE 0.9% IVPB SCH ×2 (09:30)
[2018-07-01] MEDS ORDERED: Sodium Chloride 0.9% 20 ML ONE (09:31)
[2018-07-01 09:40] VITALS: BP 140/73; TEMP 98.5
== END 2018-07-01 19:24 | disposition home or self-care (01) ==
LOC: ONC/OP 09:12
PROVIDERS: ATTEND Internal Medicine Medical Oncology
DX: Z51.11 Encounter for antineoplastic chemotherapy (principal); C50.411 Malignant neoplasm of upper-outer quadrant of right female breast; E11.9 Type 2 diabetes mellitus without complications; I10 Essential (primary) hypertension; D72.828 Other elevated white blood cell count; Z91.041 Radiographic dye allergy status; Z87.891 Personal history of nicotine dependence; Z79.4 Long term (current) use of insulin; Z79.899 Other long term (current) drug therapy
CPT/HCPCS: 96413; J1642; J7050; J9355

== ENCOUNTER 2018-07-08 09:06 | Day surgery (SDC) | payer OTHER ==
[2018-07-08 09:39] VITALS: BP 135/67; TEMP 98.3
[2018-07-08] MEDS ORDERED: SODIUM CHLORIDE 0.9% IVPB SCH ×2 (09:45)
[2018-07-08] MEDS ORDERED: TRASTUZUMAB IVPB SCH ×2 (09:45)
[2018-07-08] MEDS ORDERED: Sodium Chloride 0.9% 20 ML ONE (10:02)
== END 2018-07-08 11:30 | disposition home or self-care (01) ==
LOC: ONC/OP 09:06
PROVIDERS: ATTEND Internal Medicine Medical Oncology
DX: Z51.11 Encounter for antineoplastic chemotherapy (principal); C50.411 Malignant neoplasm of upper-outer quadrant of right female breast; D72.828 Other elevated white blood cell count; Z91.041 Radiographic dye allergy status; Z88.8 Allergy status to other drugs, medicaments and biological substances
CPT/HCPCS: 96413; J1642; J7050; J9355

== ENCOUNTER 2018-07-09 12:00 | Outpatient (CLI) | payer OTHER | END 2018-07-09 12:01 | disposition home or self-care (01) | LOC: ULT 12:00 | PROVIDERS: ATTEND Internal Medicine Medical Oncology | DX: Z51.11 Encounter for antineoplastic chemotherapy (principal); D72.828 Other elevated white blood cell count; I08.1 Rheumatic disorders of both mitral and tricuspid valves; Z79.899 Other long term (current) drug therapy | CPT/HCPCS: 93306 ==

== ENCOUNTER 2018-07-15 10:04 | Day surgery (SDC) | payer OTHER ==
[2018-07-15] MEDS ORDERED: Sodium Chloride 0.9% 20 ML ONE (10:09)
[2018-07-15] MEDS ORDERED: Sodium Chloride 0.9% 30 ML ONE (10:25)
[2018-07-15] MEDS ORDERED: Dexamethasone Sod Phosphate 20 MG in Sodium Chloride 0.9% 50 ML IVPB SCH (11:00)
[2018-07-15 11:17] VITALS: BP 139/72; TEMP 98.3
[2018-07-15] MEDS: Palonosetron HCl 0.25 MG in Sodium Chloride 0.9% 50 ML IVPB SCH ×2 (11:28→11:29)
[2018-07-15] MEDS ORDERED: SODIUM CHLORIDE 0.9% IVPB SCH ×2 (11:30)
[2018-07-15] MEDS ORDERED: DOCEtaxel 140 MG in Sodium Chloride 0.9% 250 ML 250 ML IVPB SCH (11:30)
[2018-07-15] MEDS ORDERED: TRASTUZUMAB IVPB SCH (11:30)
[2018-07-15] MEDS ORDERED: CARBOPLATIN IVPB SCH (11:30)
[2018-07-15] MEDS ORDERED: Pegfilgrastim Onpro 6 MG/0.6 ML SQ SCH (11:30)
== END 2018-07-15 16:11 | disposition home or self-care (01) ==
LOC: ONC/OP 10:04
PROVIDERS: ATTEND Internal Medicine Medical Oncology
DX: Z51.11 Encounter for antineoplastic chemotherapy (principal); C50.411 Malignant neoplasm of upper-outer quadrant of right female breast; D72.828 Other elevated white blood cell count; Z91.041 Radiographic dye allergy status
CPT/HCPCS: 80053; 82248; 83615; 84100; 84550; 96375; 96377; 96413; 96417; J1642; J2469; J2505; J7050; J9045; J9171; J9355

== ENCOUNTER 2018-07-22 10:05 | Day surgery (SDC) | payer OTHER ==
[2018-07-22] MEDS ORDERED: SODIUM CHLORIDE 0.9% IVPB SCH ×2 (10:15→10:30)
[2018-07-22] MEDS ORDERED: TRASTUZUMAB IVPB SCH ×2 (10:15→10:30)
[2018-07-22 10:33] VITALS: BP 134/65; TEMP 98.4
== END 2018-07-22 11:49 | disposition home or self-care (01) ==
LOC: ONC/OP 10:05
PROVIDERS: ATTEND Internal Medicine Medical Oncology
DX: Z51.11 Encounter for antineoplastic chemotherapy (principal); C50.411 Malignant neoplasm of upper-outer quadrant of right female breast; D72.828 Other elevated white blood cell count; Z91.041 Radiographic dye allergy status; Z88.8 Allergy status to other drugs, medicaments and biological substances
CPT/HCPCS: 96413; J7050; J9355

== ENCOUNTER 2018-07-29 09:22 | Day surgery (SDC) | payer OTHER ==
[2018-07-29] MEDS ORDERED: Sodium Chloride 0.9% 30 ML ONE (09:37)
[2018-07-29] MEDS ORDERED: SODIUM CHLORIDE 0.9% IVPB SCH (10:00)
[2018-07-29] MEDS ORDERED: TRASTUZUMAB IVPB SCH (10:00)
[2018-07-29 10:33] VITALS: BP 126/59; TEMP 98.7
== END 2018-07-29 11:15 | disposition home or self-care (01) ==
LOC: ONC/OP 09:22
PROVIDERS: ATTEND Internal Medicine Medical Oncology
DX: Z51.11 Encounter for antineoplastic chemotherapy (principal); C50.411 Malignant neoplasm of upper-outer quadrant of right female breast; D72.828 Other elevated white blood cell count; Z91.041 Radiographic dye allergy status
CPT/HCPCS: 96413; J1642; J7050; J9355

== ENCOUNTER 2018-08-05 09:19 | Day surgery (SDC) | payer OTHER ==
[2018-08-05] MEDS ORDERED: Sodium Chloride 0.9% 20 ML ONE (09:26)
[2018-08-05] MEDS ORDERED: SODIUM CHLORIDE 0.9% IVPB SCH (09:30)
[2018-08-05] MEDS ORDERED: TRASTUZUMAB IVPB SCH (09:30)
[2018-08-05 09:32] VITALS: BP 150/71; TEMP 97.4
== END 2018-08-05 12:31 | disposition home or self-care (01) ==
LOC: ONC/OP 09:19
PROVIDERS: ATTEND Internal Medicine Medical Oncology
DX: Z51.11 Encounter for antineoplastic chemotherapy (principal); C50.411 Malignant neoplasm of upper-outer quadrant of right female breast; D72.828 Other elevated white blood cell count; E11.9 Type 2 diabetes mellitus without complications; I10 Essential (primary) hypertension; F17.200 Nicotine dependence, unspecified, uncomplicated; Z91.041 Radiographic dye allergy status; Z79.84 Long term (current) use of oral hypoglycemic drugs; Z79.899 Other long term (current) drug therapy
CPT/HCPCS: 96413; J1642; J7050; J9355

== ENCOUNTER 2018-08-26 09:21 | Day surgery (SDC) | payer OTHER ==
[2018-08-26] MEDS ORDERED: TRASTUZUMAB IVPB SCH (10:30)
[2018-08-26] MEDS ORDERED: SODIUM CHLORIDE 0.9% IVPB SCH (10:30)
[2018-08-26 10:45] VITALS: BMI 30.7
[2018-08-26] MEDS ORDERED: Sodium Chloride 0.9% 20 ML ONE (11:35)
[2018-08-26 13:09] VITALS: BP 131/64; TEMP 97.7
== END 2018-08-26 17:59 | disposition home or self-care (01) ==
LOC: ONC/OP 09:21
PROVIDERS: ATTEND Internal Medicine Medical Oncology
DX: Z51.11 Encounter for antineoplastic chemotherapy (principal); C50.411 Malignant neoplasm of upper-outer quadrant of right female breast; Z91.041 Radiographic dye allergy status
CPT/HCPCS: 96413; J1642; J7050; J9355

== ENCOUNTER 2018-08-30 07:22 | Day surgery (SDC) | payer OTHER ==
[2018-08-26 10:42] VITALS: BMI 29.9
[2018-08-30] MEDS ORDERED: CEFAZOLIN 2 GM/50 ML BAG ONE (10:18)
[2018-08-30] MEDS ORDERED: Isosulfan Blue 50 MG/5 ML VIAL ONE (12:02)
[2018-08-30] MEDS ORDERED: Bupivacaine/Epinephrine 0.25% 30 ML VIAL ONE ×3 (12:02→15:03)
[2018-08-30] MEDS ORDERED: Sodium Chloride 0.9% 10 ML ONE ×2 (12:16→18:55)
[2018-08-30] MEDS ORDERED: Lidocaine 2% PF 5 ML VIAL ONE ×2 (12:20)
[2018-08-30] MEDS ORDERED: Fentanyl 100 MCG/2 ML VIAL ONE ×2 (12:49→16:00)
[2018-08-30] MEDS ORDERED: Midazolam HCl 2 mg/2 ml Vial ONE (12:49)
--- NOTE | 2018-08-30 13:10 | NM ---
NUCLEAR MEDICINE LYMPHOSCINTIGRAPHY: Date: 08/30/18 HISTORY: Malignant neoplasm of the right breast. TECHNIQUE: Patient was administered a total of 0.378 mCi technetium-99m filtered sulfur colloid subcutaneously. The radiotracer was injected at the 12, 3, 6, and 9 o'clock position with respect to the right nipple /areola. FINDINGS: There is evidence of an axillary lymph node, which is the sentinel lymph node. Skin was marked. IMPRESSION: [place] right axillary lymph node. POS: [facility]
[2018-08-30] MEDS ORDERED: Sodium Chloride 0.9% 0 ML ONE (15:45)
--- NOTE | 2018-08-30 16:25 | PDOC.OP ---
Operative Note - Operative Note Operative Note: PROCEDURE: Right needle localized lumpectomy and sentinel lymph node biopsy with left internal jugular Mediport placement with ultrasound and fluoroscopy guidance DATE OF PROCEDURE: SURGEON: Mika Vasquez M.D. PREOPERATIVE DIAGNOSES: Right breast cancer POSTOPERATIVE DIAGNOSIS: Right breast cancer HISTORY: Patient is diagnosed with breast cancer. She has completed neoadjuvant chemotherapy and has decided to undergo breast conservation therapy. [place] lymph node biopsy was recommended for staging. Left Mediport had to be removed and it was recommended that this be replaced since she still has another year of Herceptin to complete. PROCEDURE IN DETAIL: The patient underwent lymphoscintigraphy and needle localization of the breast mass in radiology prior to being taken to the operating room. She was then taken to the operating room and placed in supine position and anesthesia was administered. Appropriate preoperative antibiotics were administered and lymphazurin was injected behind the areola and the breast was massaged for several minutes taking care not to displace or disturb the needle localization wire. She was then prepped and draped in the standard sterile fashion. The left internal jugular Mediport was performed first. The patient was placed in Trendelenburg position and the left internal jugular vein accessed easily under direct ultrasound guidance on the first attempt with excellent flow of dark venous non-pulsatile blood. A wire threaded easily and was confirmed to be in the superior vena cava by fluoroscopy. Additional local anesthesia was infused to the skin and subcutaneous tissues at the former Mediport site. The widened scar was excised and a subcutaneous pocket developed inferiorly. A Mediport was obtained and confirmed to fit in the subcutaneous pocket. This was secured to the pectoralis fascia with Prolene sutures. The Mediport tubing was then tunneled from the left chest incision to the left neck incision. The dilator and sheath were then placed over the wire and the dilator and wire removed leaving the sheath in place. The clamped MediPort tubing was tunneled through the sheath, which was then split and removed leaving the MediPort tubing in place. The tubing was adjusted until the tip was confirmed by fluoroscopy to be in the superior vena cava just above the atrium. The tubing was clamped at the chest incision and cut and the tubing secured to the portt. The port was aspirated with the Rose needle and had excellent flow of dark venous non-pulsatile blood and easily flushed without resistance. The subcutaneous tissues were closed with a running Monocryl suture, following which the skin was closed with a running subcuticular Monocryl suture. Dermabond dressings were placed and the hub was again accessed through the skin and confirmed to easily aspirate and easily flush. The course of the catheter was confirmed by fluoroscopy to be smooth with the tip appropriately located in the superior vena cava. Attention was then turned to the right sentinel lymph node biopsy. Local anesthesia was infused the skin and subcutaneous tissues of the axilla. An incision was made over the lower edge of the hair-bearing skin of the axilla and dissection carried down to the area of highest activity. Some blue lymphatics were seen feeding an enlarged lymph node in this area. The lymphatics were clipped and the lymph node resected. A target count of 115 was obtained and the specimen was sent as sentinel lymph node #1. The axillary wound was irrigated and examined for hemostasis which was excellent. No additional areas of increased activity and no other palpable or visible enlarged lymph nodes were identified. Additional local anesthesia was infused circumferentially for postoperative pain management and the subcutaneous tissues were closed with 3-0 Monocryl suture and the skin closed with 4-0 subcuticular Monocryl suture. Attention was then turned to the needle localized lumpectomy. The needle localization mammograms have been previously examined and the biopsy clip was located posterior to the needle a couple centimeters proximal to the end of the wire. The needle itself was located at 8 cm of skin and directed almost directly inferiorly. Local anesthesia was infused into the skin and subcutaneous tissues about 4 cm from the skin incision. Dissection was carried down to the needle which was confirmed to be at the 4 cm lowell at this location. Flaps were raised anterior to the needle and dissection carried down to the chest wall on either side. The needle was withdrawn leaving the wire in place and the wire was drawn out through the incision and clamped in place with the breast tissue.. The breast tissue surrounding the distal portion of the wire was then excised down to the chest wall. Dissection was carried out to the end of the wire and the specimen removed and oriented for pathology with a long lateral, short superior, and looped superficial suture. This was sent for a specimen mammogram which revealed that the S-shaped sound guided biopsy clip was in the specimen. The wound was irrigated and hemostasis obtained with Bovie electrocautery. Additional local anesthesia was infused for postoperative pain management and the subcutaneous tissues were reapproximated with 3-0 Monocryl sutures. Additional local anesthesia was infused into the biopsy cavity and the skin was closed with 4-0 subcuticular Monocryl sutures. Dermabond was placed to all skin incisions incisions. Estimated blood loss minimal. There were no complications. SPECIMENS: Right breast sentinel lymph node #1 and right needle localized excisional breast biopsy.
[2018-08-30] MEDS ORDERED: Chloraseptic Spray 180 ml Bottle PO PRN (17:25)
[2018-08-30] MEDS ORDERED: HYDROcodone/Acetaminophen 5/325 mg Tablet ONE (18:12)
--- NOTE | 2018-08-30 18:14 | RAD ---
FRONTAL VIEW CHEST: Comparison: 03-23-18 Indication: Mediport placement. FINDINGS: There is a venous chest port tip overlying the SVC region. There is enlargement of the cardiac silhou ette with prominence of pulmonary vasculature. Hazy density at the lower chest is seen bilaterally, w ith elevation of the right hemidiaphragm. IMPRESSION: 1. Left chest port without a discrete pneumothorax. 2. Findings indicating fluid overload. Correlate clinically, and as necessary imaging follow up may be obtained. POS: [facility]
--- NOTE | 2018-08-30 18:20 | MMO ---
MAMMOGRAPHICALLY GUIDED NEEDLE LOCALIZATION: HISTORY: Right breast cancer. The patient has undergone chemotherapy. COMPARISON: 02/23/2018 FINDINGS: Successful mammographically guided needle localization. A 10 cm [place] needle and wire are adjacent t o the S-shaped clip in the posterior right breast. Two additional incidental clips are noted. TECHNIQUE: Consent obtained to perform mammographic guided needle localization of right breast cancer that has u ndergone chemotherapy. The right breast was compressed in the CC projection. The S-shaped clip was identified. The skin was prepped and draped in a sterile fashion. Lidocaine 1% buffered with sodium bicarbonate was used for local anesthesia. Under mammographic guidance, a 10 cm [place] needle and wir e were advanced, such that the needle and wire were adjacent to the S-shaped clip. The wire was depl oyed. Post deployment images were obtained. The needle was secured to the patient. The patient bill erated the procedure well. No immediate or post procedure complications. IMPRESSION: Successful right breast needle localization with mammographic guidance. SURGICAL SPECIMEN: Radiograph of the surgical specimen demonstrates the S-shaped clip, as well as a second clip, along w ith the [place] wire. The findings were conveyed to Dr. Vasquez on 08/30/2018, at the presentation of the surgical specimen. IMPRESSION: Successful needle localization. Clip and wire present. POS: [facility]
== END 2018-08-30 19:00 | disposition home or self-care (01) ==
LOC: SDC 07:22
PROVIDERS: ATTEND Surgery
PROC: 0HBT0ZZ Excision of Right Breast, Open Approach (ICD-10-PCS; principal; 2018-08-30)
PROC: 0JH63WZ Insertion of Totally Implantable Vascular Access Device into Chest Subcutaneous Tissue and Fascia, Percutaneous Approach (ICD-10-PCS; principal; 2018-08-30)
PROC: 07B50ZX Excision of Right Axillary Lymphatic, Open Approach, Diagnostic (ICD-10-PCS; principal; 2018-08-30)
DX: C50.211 Malignant neoplasm of upper-inner quadrant of right female breast (principal); E11.9 Type 2 diabetes mellitus without complications; F17.200 Nicotine dependence, unspecified, uncomplicated; Z17.1 Estrogen receptor negative status [ER-]; Z79.82 Long term (current) use of aspirin; Z79.4 Long term (current) use of insulin; Z79.899 Other long term (current) drug therapy; Z88.5 Allergy status to narcotic agent; Z91.041 Radiographic dye allergy status
CPT/HCPCS: 19281; 36416; 71045; 76098; 78195; 88184; 88307; 88333; 88334; 88342; 96374; A9541; C1788; J0131; J1642; J2001; J2250; J3010; J3490; Q9968

== ENCOUNTER 2018-09-09 08:41 | Day surgery (SDC) | payer OTHER ==
[2018-09-09] MEDS ORDERED: Sodium Chloride 0.9% 20 ML ONE (08:56)
== END 2018-09-09 09:48 | disposition home or self-care (01) ==
LOC: ONC/OP 08:41
PROVIDERS: ATTEND Internal Medicine Medical Oncology
DX: D72.828 Other elevated white blood cell count (principal); C50.411 Malignant neoplasm of upper-outer quadrant of right female breast; Z79.84 Long term (current) use of oral hypoglycemic drugs; Z79.4 Long term (current) use of insulin; Z79.82 Long term (current) use of aspirin; Z79.899 Other long term (current) drug therapy; Z88.5 Allergy status to narcotic agent; Z91.041 Radiographic dye allergy status
CPT/HCPCS: 96523; J1642

== ENCOUNTER → 2018-09-16 | Day surgery (SDC) | payer OTHER ==
[~2018-09-16] MED LIST changes: -Lidocaine 1% PF 5 ML VIAL ONE; -Metoclopramide HCl 10 MG/2 ML VIAL ONE; -Ondansetron HCl/PF 4 MG/2 ML Vial ONE; -PROPOFOL 200 MG/20 ML VIAL ONE; +SODIUM CHLORIDE 0.9% IVPB SCH; +Sodium Chloride 0.9% 20 ML ONE; +TRASTUZUMAB IVPB SCH
[2018-09-16 17:13] VITALS: BP 161/74; TEMP 98.1
== END ==
LOC: ONC/OP 12:36
PROVIDERS: ATTEND Internal Medicine Medical Oncology
DX: Z51.11 Encounter for antineoplastic chemotherapy (principal); C50.411 Malignant neoplasm of upper-outer quadrant of right female breast; D72.828 Other elevated white blood cell count; Z91.041 Radiographic dye allergy status; Z88.8 Allergy status to other drugs, medicaments and biological substances
CPT/HCPCS: 96413; J1642; J7050; J9355

== ENCOUNTER 2018-09-29 08:33 | Emergency (ER) | payer OTHER ==
[2018-09-29] MEDS ORDERED: Ketorolac Tromethamine 30 MG/ML VIAL ONE (09:32)
== END 2018-09-29 09:42 | disposition home or self-care (01) ==
LOC: ERS 08:33
DX: G89.29 Other chronic pain (principal); M79.671 Pain in right foot; M79.672 Pain in left foot; E11.9 Type 2 diabetes mellitus without complications; I10 Essential (primary) hypertension; F32.9 Major depressive disorder, single episode, unspecified; F17.210 Nicotine dependence, cigarettes, uncomplicated; Z79.899 Other long term (current) drug therapy; Z79.84 Long term (current) use of oral hypoglycemic drugs
CPT/HCPCS: 96374; J1885

== ENCOUNTER 2018-10-05 13:08 | Outpatient (CLI) | payer OTHER | END 2018-10-05 13:09 | disposition home or self-care (01) | LOC: ULT 13:08 | PROVIDERS: ATTEND Internal Medicine Medical Oncology | DX: Z51.11 Encounter for antineoplastic chemotherapy (principal); C50.919 Malignant neoplasm of unspecified site of unspecified female breast; Z79.899 Other long term (current) drug therapy; D72.828 Other elevated white blood cell count; I08.1 Rheumatic disorders of both mitral and tricuspid valves | CPT/HCPCS: 93306 ==

== ENCOUNTER 2018-10-07 11:03 | Day surgery (SDC) | payer OTHER ==
[2018-10-07] MEDS ORDERED: Sodium Chloride 0.9% 20 ML ONE (11:28)
[2018-10-07 12:17] VITALS: BP 186/90; TEMP 98.4
[2018-10-07] MEDS ORDERED: TRASTUZUMAB IVPB SCH (12:30)
[2018-10-07] MEDS ORDERED: SODIUM CHLORIDE 0.9% IVPB SCH (12:30)
== END 2018-10-07 13:17 | disposition home or self-care (01) ==
LOC: ONC/OP 11:03
PROVIDERS: ATTEND Internal Medicine Medical Oncology
DX: Z51.11 Encounter for antineoplastic chemotherapy (principal); C50.411 Malignant neoplasm of upper-outer quadrant of right female breast; D72.828 Other elevated white blood cell count; E11.9 Type 2 diabetes mellitus without complications; I10 Essential (primary) hypertension; M19.90 Unspecified osteoarthritis, unspecified site; F17.210 Nicotine dependence, cigarettes, uncomplicated; D47.1 Chronic myeloproliferative disease; Z17.1 Estrogen receptor negative status [ER-]; Z79.4 Long term (current) use of insulin; Z79.82 Long term (current) use of aspirin; Z79.899 Other long term (current) drug therapy; Z91.041 Radiographic dye allergy status; Z88.5 Allergy status to narcotic agent
CPT/HCPCS: 87070; 87076; 87205; 96413; J1642; J7050; J9355

== ENCOUNTER 2018-10-18 11:16 | Emergency (ER) | payer OTHER | END 2018-10-18 13:12 | disposition home or self-care (01) | LOC: ERS 11:16 | DX: I89.0 Lymphedema, not elsewhere classified (principal); F32.9 Major depressive disorder, single episode, unspecified; I10 Essential (primary) hypertension; F17.210 Nicotine dependence, cigarettes, uncomplicated; E11.9 Type 2 diabetes mellitus without complications; Z79.4 Long term (current) use of insulin; Z87.442 Personal history of urinary calculi | CPT/HCPCS: 99283 ==

== ENCOUNTER 2018-10-28 10:09 | Day surgery (SDC) | payer OTHER ==
[2018-10-28] MEDS ORDERED: Sodium Chloride 0.9% 20 ML ONE (10:29)
[2018-10-28] MEDS ORDERED: TRASTUZUMAB IVPB SCH ×2 (10:30→10:45)
[2018-10-28] MEDS ORDERED: SODIUM CHLORIDE 0.9% IVPB SCH ×2 (10:30→10:45)
[2018-10-28 11:27] VITALS: BP 157/74; TEMP 98.9
== END 2018-10-28 12:23 | disposition home or self-care (01) ==
LOC: ONC/OP 10:09
PROVIDERS: ATTEND Internal Medicine Medical Oncology
DX: Z51.11 Encounter for antineoplastic chemotherapy (principal); C50.411 Malignant neoplasm of upper-outer quadrant of right female breast; C94.6 Myelodysplastic disease, not elsewhere classified; E11.9 Type 2 diabetes mellitus without complications; I10 Essential (primary) hypertension; M19.90 Unspecified osteoarthritis, unspecified site; F17.210 Nicotine dependence, cigarettes, uncomplicated; Z17.1 Estrogen receptor negative status [ER-]; Z79.4 Long term (current) use of insulin; Z79.82 Long term (current) use of aspirin; Z79.899 Other long term (current) drug therapy; Z88.5 Allergy status to narcotic agent; Z91.041 Radiographic dye allergy status
CPT/HCPCS: 96413; J1642; J7050; J9355

== ENCOUNTER 2018-11-18 09:31 | Day surgery (SDC) | payer OTHER ==
[~2018-11-18 09:31] MED LIST changes: -Sodium Chloride 0.9% 20 ML ONE
[2018-11-18] MEDS ORDERED: Sodium Chloride 0.9% 20 ML ONE (10:00)
[2018-11-18 13:54] VITALS: BP 139/74; TEMP 98.4
== END 2018-11-18 13:55 | disposition home or self-care (01) ==
LOC: ONC/OP 09:31
PROVIDERS: ATTEND Internal Medicine Medical Oncology
DX: Z51.11 Encounter for antineoplastic chemotherapy (principal); C50.411 Malignant neoplasm of upper-outer quadrant of right female breast; D72.828 Other elevated white blood cell count; Z88.5 Allergy status to narcotic agent; Z91.041 Radiographic dye allergy status
CPT/HCPCS: 96413; J1642; J7050; J9355

== ENCOUNTER 2018-12-09 12:52 | Day surgery (SDC) | payer OTHER ==
[2018-12-09] MEDS ORDERED: Sodium Chloride 0.9% 20 ML ONE (13:03)
[2018-12-09 13:11] VITALS: BP 170/82; TEMP 98.4
== END 2018-12-09 14:30 | disposition home or self-care (01) ==
LOC: ONC/OP 12:52
PROVIDERS: ATTEND Internal Medicine Medical Oncology
DX: Z51.11 Encounter for antineoplastic chemotherapy (principal); C50.411 Malignant neoplasm of upper-outer quadrant of right female breast; E11.9 Type 2 diabetes mellitus without complications; I10 Essential (primary) hypertension; M19.90 Unspecified osteoarthritis, unspecified site; F17.210 Nicotine dependence, cigarettes, uncomplicated; Z90.49 Acquired absence of other specified parts of digestive tract; Z90.711 Acquired absence of uterus with remaining cervical stump; Z88.5 Allergy status to narcotic agent; Z91.041 Radiographic dye allergy status; Z79.4 Long term (current) use of insulin; Z79.82 Long term (current) use of aspirin; Z79.899 Other long term (current) drug therapy; Z98.890 Other specified postprocedural states
CPT/HCPCS: 96413; J1642; J7050; J9355

== ENCOUNTER 2018-12-30 16:29 | Emergency (ER) | payer OTHER ==
[2018-12-30 17:21] LABS: #Basophils 0.1 thou/uL (0.0-0.2); #Eosinphils 0.1 thou/uL (0.0-0.7); #Monocytes 0.8 thou/uL (0.11-0.59); #Neutrophils 5.6 thou/uL (1.40-6.50); %Basophils 1.1 % (0.0-1.0); %Eosinophils 1.6 % (0.0-10.0); %Lymphocytes 23.2 % (21.0-51.0); Hemoglobin 12.2 g/dL (12.0-16.0); Mean Corpuscular HGB CONC 33.7 g/dL (32.0-36.0); Mean Corpuscular Hemoglobin 26.6 pg (27.0-31.0); Mean Corpuscular Volume 78.8 fL (78.0-98.0); Mean Platelet Volume 8.1 fL (7.4-10.4); Platelet Count 804 thou/uL (130-400); RBC Distribution Width 14.6 % (11.5-14.5); Red Blood Cell (RBC) Count 4.59 mill/uL (4.20-5.40); White Blood Cell (WBC) Count 8.5 thou/uL (4.8-10.8)
[2018-12-30 17:39] LABS: ALT (SGPT) 54 U/L (8-55); AST (SGOT) 44 U/L (5-34); Albumin 4.1 g/dL (3.5-5.0); Alkaline Phosphatase 115 U/L (40-150); Anion Gap 14 mmol/L (10-20); BUN (Urea Nitrogen) 12 mg/dL (9.8-20.1); Bilirubin, Total 0.6 mg/dL (0.2-1.2); Calc. Creatinine Clearance 0 mL/min (70-130); Carbon Dioxide 25 mmol/L (22-29); Chloride 104 mmol/L (98-107); Estimated GFR-MDRD 86; Globulin 3.1 g/dL (2.4-3.5); Glucose 260 mg/dL (70-105); Potassium 3.5 mmol/L (3.5-5.1); Protein, Total 7.2 g/dL (6.0-8.3); Sodium 139 mmol/L (136-145)
[2018-12-30] MEDS ORDERED: diphenhydrAMINE 50 MG/ML VIAL ONE (20:30)
[2018-12-30] MEDS ORDERED: Metoclopramide HCl 10 MG/2 ML VIAL ONE (20:30)
--- NOTE | 2018-12-30 21:09 | CT ---
CT BRAIN WITHOUT CONTRAST: 12/30/18 HISTORY: Headache. FINDINGS: Comparison made with exam of 04/01/18. No evidence of acute infarct, hemorrhage, midline shift, or abnormal extra-axial fluid collection is seen. The ventricular size is normal and the basilar cisterns patent. The bony calvarium is intact. T he visualized paranasal sinuses are well aerated. IMPRESSION: No CT evidence of acute intracranial process. POS: [facility]
[2018-12-30] MEDS ORDERED: Ketorolac Tromethamine 30 MG/ML VIAL ONE (23:01)
== END 2018-12-30 23:27 | disposition home or self-care (01) ==
LOC: ERS 16:29
DX: R51 Headache (principal); E11.9 Type 2 diabetes mellitus without complications; I10 Essential (primary) hypertension; Z79.4 Long term (current) use of insulin; F32.9 Major depressive disorder, single episode, unspecified; F17.210 Nicotine dependence, cigarettes, uncomplicated
CPT/HCPCS: 36415; 70450; 80053; 85025; 96365; 96366; 96375; J1200; J1885; J2765

== ENCOUNTER 2019-01-27 09:37 | Day surgery (SDC) | payer OTHER ==
[2019-01-27] MEDS ORDERED: Sodium Chloride 0.9% 20 ML ONE ×2 (09:52→10:25)
[2019-01-27] MEDS ORDERED: TRASTUZUMAB IVPB SCH (10:00)
[2019-01-27] MEDS ORDERED: SODIUM CHLORIDE 0.9% IVPB SCH (10:00)
[2019-01-27 10:19] VITALS: BP 134/74; TEMP 98.4
== END 2019-01-27 11:39 | disposition home or self-care (01) ==
LOC: ONC/OP 09:37
PROVIDERS: ATTEND Internal Medicine Medical Oncology
DX: Z51.12 Encounter for antineoplastic immunotherapy (principal); C50.411 Malignant neoplasm of upper-outer quadrant of right female breast; D72.828 Other elevated white blood cell count; Z91.041 Radiographic dye allergy status
CPT/HCPCS: 96413; J1642; J7050; J9355

== ENCOUNTER 2019-02-17 10:20 | Day surgery (SDC) | payer OTHER | END 2019-02-17 11:21 | disposition home or self-care (01) | LOC: ONC/OP 10:20 | PROVIDERS: ATTEND Internal Medicine Medical Oncology | DX: Z51.12 Encounter for antineoplastic immunotherapy (principal); C50.411 Malignant neoplasm of upper-outer quadrant of right female breast; D72.828 Other elevated white blood cell count; Z91.041 Radiographic dye allergy status | CPT/HCPCS: 80053; 82248; 82728; 83615; 84100; 84550; 96413; J7050; J9355 ==

== ENCOUNTER 2019-02-24 13:10 | Outpatient (CLI) | payer OTHER | END 2019-02-24 13:11 | disposition home or self-care (01) | LOC: ULT 13:10 | PROVIDERS: ATTEND Internal Medicine Medical Oncology | DX: C50.411 Malignant neoplasm of upper-outer quadrant of right female breast (principal); D72.828 Other elevated white blood cell count; I08.1 Rheumatic disorders of both mitral and tricuspid valves | CPT/HCPCS: 93306 ==

== ENCOUNTER 2019-03-02 10:21 | Outpatient (CLI) | payer OTHER ==
--- NOTE | 2019-03-02 11:08 | MMO ---
Bilateral MAMMO Bilat Diag [facility]. CLINICAL HISTORY: Patient is 53 years old and is seen for diagnostic exam. The patient has the following family history of breast cancer: mother. The patient has no personal history of cancer. 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 VIEWS: The views performed were: bilateral craniocaudal with tomosynthesis; bilateral mediolateral oblique with tomosynthesis; and bilateral mediolateral. FILMS COMPARED: The present examination has been compared to prior imaging studies performed at [facility] on 11/19/2015, 10/21/2016, 05/05/2017 and 02/05/2018. MAMMOGRAM FINDINGS: The breasts are heterogeneously dense, which could obscure a lesion on mammography. Finding 1: There are new post operative changes seen in the right breast. Finding 2: There is a stable biopsy clip seen in the right breast. There are no suspicious masses, suspicious calcifications, or new areas of architectural distortion. IMPRESSION: THERE IS NO MAMMOGRAPHIC EVIDENCE OF MALIGNANCY. A ROUTINE FOLLOW-UP MAMMOGRAM IN 1 YEAR IS RECOMMENDED. THE RESULTS OF THIS EXAM WERE SENT TO THE PATIENT. ACR BI-RADS Category 2 - Benign finding MAMMOGRAPHY NOTE: 1. A negative mammogram report should not delay a biopsy if a dominant of clinically suspicious mass is present. 2. Approximately 10% to 15% of breast cancers are not detected by mammography. 3. Adenosis and dense breasts may obscure an underlying neoplasm.
== END 2019-03-02 10:22 | disposition home or self-care (01) ==
LOC: BICMAMMO 10:21
PROVIDERS: ATTEND Internal Medicine Medical Oncology
DX: C50.411 Malignant neoplasm of upper-outer quadrant of right female breast (principal); Z80.3 Family history of malignant neoplasm of breast; Z98.890 Other specified postprocedural states
CPT/HCPCS: 77066; G0279

== ENCOUNTER → 2019-03-14 | Day surgery (SDC) | payer OTHER ==
[~2019-03-14] MED LIST changes: +Sodium Chloride 0.9% 20 ML ONE
[2019-03-14 10:07] VITALS: BP 141/67; TEMP 98.8
== END ==
LOC: ONC/OP 09:21
PROVIDERS: ATTEND Internal Medicine Medical Oncology
DX: Z51.12 Encounter for antineoplastic immunotherapy (principal); C50.411 Malignant neoplasm of upper-outer quadrant of right female breast; Z91.041 Radiographic dye allergy status; Z88.5 Allergy status to narcotic agent
CPT/HCPCS: 96413; J1642; J7050; J9355

== ENCOUNTER 2019-03-31 10:43 | Day surgery (SDC) | payer OTHER ==
[~2019-03-31 10:43] MED LIST changes: -Sodium Chloride 0.9% 20 ML ONE
[2019-03-31 11:31] LABS: #Basophils 0.1 thou/uL (0.0-0.2); #Eosinphils 0.2 thou/uL (0.0-0.7); #Monocytes 0.6 thou/uL (0.11-0.59); %Basophils 0.6 % (0.0-1.0); %Eosinophils 2.6 % (0.0-10.0); %Lymphocytes 22.5 % (21.0-51.0); %Monocytes 7.2 % (0.0-10.0); %Neutrophils 67.2 % (42.0-75.0); Hemoglobin 11.3 g/dL (12.0-16.0); Mean Corpuscular HGB CONC 32.9 g/dL (32.0-36.0); Mean Corpuscular Volume 79.1 fL (78.0-98.0); Platelet Count 727 thou/uL (130-400); RBC Distribution Width 14.3 % (11.5-14.5); Red Blood Cell (RBC) Count 4.34 mill/uL (4.20-5.40); White Blood Cell (WBC) Count 8.9 thou/uL (4.8-10.8)
[2019-03-31 11:33] VITALS: BP 163/76; TEMP 98.1
[2019-03-31] MEDS ORDERED: Sodium Chloride 0.9% 20 ML ONE (11:49)
== END 2019-03-31 12:24 | disposition home or self-care (01) ==
LOC: ONC/OP 10:43
PROVIDERS: ATTEND Internal Medicine Medical Oncology
DX: Z51.12 Encounter for antineoplastic immunotherapy (principal); C50.411 Malignant neoplasm of upper-outer quadrant of right female breast; D72.828 Other elevated white blood cell count; Z91.041 Radiographic dye allergy status
CPT/HCPCS: 85025; 96413; J1642; J7050; J9355

== ENCOUNTER 2020-03-15 08:39 | Outpatient (CLI) | payer OTHER ==
--- NOTE | 2020-03-15 09:14 | MMO ---
Bilateral MAMMO Bilat Diag [facility]. CLINICAL HISTORY: Patient is 54 years old and is seen for diagnostic exam. The patient has the following family history of breast cancer: mother. The patient has no personal history of cancer. 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 VIEWS: The views performed were: bilateral craniocaudal with tomosynthesis; bilateral mediolateral oblique with tomosynthesis; and bilateral mediolateral with tomosynthesis. FILMS COMPARED: The present examination has been compared to prior imaging studies performed at [facility] on 10/21/2016, 05/05/2017, 02/05/2018 and 03/02/2019. This study has been interpreted with the assistance of computer-aided detection. MAMMOGRAM FINDINGS: The breasts are heterogeneously dense, which could obscure a lesion on mammography. Finding 1: There are stable benign appearing calcifications seen in both breasts. Finding 2: There is a stable post-surgical scar seen in the upper region of the right breast. Finding 3: There are stable benign appearing densities seen in both breasts. There are no suspicious masses, suspicious calcifications, or new areas of architectural distortion. IMPRESSION: THERE IS NO MAMMOGRAPHIC EVIDENCE OF MALIGNANCY. A ROUTINE FOLLOW-UP MAMMOGRAM IN 1 YEAR IS RECOMMENDED. THE RESULTS OF THIS EXAM WERE SENT TO THE PATIENT. ACR BI-RADS Category 2 - Benign finding MAMMOGRAPHY NOTE: 1. A negative mammogram report should not delay a biopsy if a dominant of clinically suspicious mass is present. 2. Approximately 10% to 15% of breast cancers are not detected by mammography. 3. Adenosis and dense breasts may obscure an underlying neoplasm. Reported by: CHARLINE MÁRQUEZ MD Electonically Signed: [id number]
== END 2020-03-15 08:40 | disposition home or self-care (01) ==
LOC: BICMAMMO 08:39
PROVIDERS: ATTEND Internal Medicine Medical Oncology
DX: Z08 Encounter for follow-up examination after completed treatment for malignant neoplasm (principal); Z85.3 Personal history of malignant neoplasm of breast
CPT/HCPCS: 77066; G0279

== ENCOUNTER 2022-04-04 08:26 | Outpatient (CLI) | payer OTHER | END 2022-04-04 08:27 | disposition home or self-care (01) | LOC: BICMAMMO 08:26 | PROVIDERS: ATTEND Internal Medicine Medical Oncology | DX: Z08 Encounter for follow-up examination after completed treatment for malignant neoplasm (principal); Z85.3 Personal history of malignant neoplasm of breast | CPT/HCPCS: 77066; G0279 ==

== ENCOUNTER 2022-10-31 21:14 | Emergency (ER) | payer OTHER ==
[2022-10-31 21:35] LABS: Bacteria/HPF None Seen HPF (None Seen); Bilirubin Negative (Negative); Blood, Urine 1+ (Negative); Clarity Clear (Clear); Glucose, Urine (Dipstick) 70 mg/dL (Negative); Ketone, Urine Negative (Negative); Leukocyte Negative Leu/uL (Negative); Nitrite Negative (Negative); Protein, Urine (Dipstick) 300 mg/dL (Neg-Trace); RBC/HPF 0-3 HPF (0-3); Specific Gravity, Urine 1.011 (1.002-1.036); Squamous Epithelial 0-3 HPF (0-3); Urobilinogen Normal mg/dL (Less than 2); WBC/HPF 0-3 HPF (0-3)
[2022-10-31 22:00] LABS: Hemoglobin 8.2 g/dL (12.0-16.0); Mean Corpuscular HGB CONC 34.5 g/dL (32.0-36.0); Mean Corpuscular Hemoglobin 27.3 pg (27.0-31.0); Mean Corpuscular Volume 79.3 fl (78.0-98.0); Mean Platelet Volume 8.9 fL (7.4-10.4); Platelet Count 532 10x3/uL (130-400); RBC Distribution Width 20.4 % (11.5-14.5); White Blood Cell (WBC) Count 8.4 10x3/uL (4.8-10.8)
[2022-10-31 22:17] LABS: ALT (SGPT) 12 U/L (8-55); AST (SGOT) 24 U/L (5-34); Alkaline Phosphatase 70 U/L (40-110); Anion Gap 10 mmol/L (10-20); BUN (Urea Nitrogen) 23 mg/dL (9.8-20.1); Bilirubin, Total 0.5 mg/dL (0.2-1.2); Calc. Creatinine Clearance 0 mL/min (70-130); Carbon Dioxide 22 mmol/L (22-29); Chloride 114 mmol/L (98-107); Estimated GFR 26; Globulin 2.2 g/dL (2.4-3.5); Glucose 97 mg/dL (70-105); Lipase 36 U/L (8-78); Potassium 3.7 mmol/L (3.5-5.1); Protein, Total 5.2 g/dL (6.0-8.3); Sodium 142 mmol/L (136-145)
[2022-10-31 22:20] LABS: #Basophils 0.1 thou/uL (0.0-0.2); #Eosinphils 0.1 thou/uL (0.0-0.7); #Lymphocytes 1.8 thou/uL (1.20-3.40); #Monocytes 0.6 thou/uL (0.11-0.59); #Neutrophils 5.8 thou/uL (1.40-6.50); %Basophils 1.1 % (0.0-1.0); %Eosinophils 1.2 % (0.0-10.0); %Lymphocytes 21.7 % (21.0-51.0); %Monocytes 7.1 % (0.0-10.0); %Neutrophils 68.9 % (42.0-75.0); Anisocytosis SLIGHT = 6-15 cells (100X) (0-5/hpf); Large Platelets SLIGHT; MDiff Complete? YES; Platelet Morphology Comment Appears Increased; Reflex for Review?? YES; Schistocytes SLIGHT = 2-5 cells (100X) (0-1/hpf); Tear Drops MODERATE= 6-15 cells (100X) (0-1/hpf)
[2022-10-31] MEDS ORDERED: Morphine 2 MG/ML VIAL ONE (22:58)
[2022-10-31] MEDS ORDERED: Acetaminophen 500 MG TAB ONE (22:59)
[2022-11-01] MEDS ORDERED: HYDROmorphone 0.5 MG/0.5 ML SYRINGE ONE (00:09)
[2022-11-01] MEDS ORDERED: Labetalol HCl 100 MG/20 ML VIAL ONE (00:09)
[2022-11-01] MEDS ORDERED: Ondansetron PF 4 MG/2 ML Vial ONE (01:17)
== END 2022-11-01 02:30 | disposition home or self-care (01) ==
LOC: ERS 21:14
DX: N17.9 Acute kidney failure, unspecified (principal); E11.22 Type 2 diabetes mellitus with diabetic chronic kidney disease; N18.9 Chronic kidney disease, unspecified; I12.9 Hypertensive chronic kidney disease with stage 1 through stage 4 chronic kidney disease, or unspecified chronic kidney disease; Z79.4 Long term (current) use of insulin; Z87.891 Personal history of nicotine dependence
CPT/HCPCS: 36415; 71045; 74176; 80053; 81003; 81015; 83690; 84484; 85025; 85060; 96374; 96375; 96376; J1170; J2272; J2405

== ENCOUNTER 2023-03-03 13:48 | Emergency (ER) | payer OTHER ==
[2023-03-03 14:37] LABS: #Basophils 0.2 thou/uL (0.0-0.2); #Eosinphils 0.3 thou/uL (0.0-0.7); #Monocytes 0.8 thou/uL (0.11-0.59); #Neutrophils 8.4 thou/uL (1.40-6.50); %Basophils 1.5 % (0.0-1.0); %Eosinophils 2.1 % (0.0-10.0); %Lymphocytes 15.5 % (21.0-51.0); %Neutrophils 71.5 % (42.0-75.0); Hemoglobin 8.8 g/dL (12.0-16.0); Mean Corpuscular Hemoglobin 26.7 pg (27.0-31.0); Mean Corpuscular Volume 83.3 fl (78.0-98.0); Mean Platelet Volume 10.7 fL (7.4-10.4); Platelet Count 783 10x3/uL (130-400); RBC Distribution Width 18.7 % (11.5-14.5); White Blood Cell (WBC) Count 11.7 10x3/uL (4.8-10.8)
[2023-03-03 14:58] LABS: Anion Gap 13 mmol/L (10-20); BUN (Urea Nitrogen) 39 mg/dL (9.8-20.1); Calc. Creatinine Clearance 0 mL/min (70-130); Carbon Dioxide 17 mmol/L (22-29); Chloride 116 mmol/L (98-107); Potassium 4.5 mmol/L (3.5-5.1); Sodium 141 mmol/L (136-145)
[2023-03-03 14:59] LABS: ALT (SGPT) 11 U/L (8-55); AST (SGOT) 19 U/L (5-34); Albumin 3.5 g/dL (3.5-5.0); Alkaline Phosphatase 66 U/L (40-110); Bilirubin, Total 0.4 mg/dL (0.2-1.2); Estimated GFR 18; Globulin 2.8 g/dL (2.4-3.5); Glucose 79 mg/dL (70-105); Protein, Total 6.3 g/dL (6.0-8.3)
[2023-03-03] MEDS ORDERED: cloNIDine 0.1 MG TAB ONE (15:48)
== END 2023-03-03 16:15 | disposition home or self-care (01) ==
LOC: ERS 13:48
DX: E87.5 Hyperkalemia (principal); D72.829 Elevated white blood cell count, unspecified; E11.9 Type 2 diabetes mellitus without complications; E78.5 Hyperlipidemia, unspecified; I10 Essential (primary) hypertension; Z87.891 Personal history of nicotine dependence
CPT/HCPCS: 36415; 80053; 85025; 99284

== ENCOUNTER 2023-03-25 18:30 | Emergency (ER) | payer OTHER ==
[2023-03-25 18:55] LABS: #Basophils 0.2 thou/uL (0.0-0.2); #Eosinphils 0.2 thou/uL (0.0-0.7); #Monocytes 0.6 thou/uL (0.11-0.59); #Neutrophils 8.6 thou/uL (1.40-6.50); %Basophils 1.4 % (0.0-1.0); %Eosinophils 1.6 % (0.0-10.0); %Lymphocytes 13.9 % (21.0-51.0); %Monocytes 5.4 % (0.0-10.0); %Neutrophils 75.6 % (42.0-75.0); Hemoglobin 8.9 g/dL (12.0-16.0); Mean Corpuscular HGB CONC 31.4 g/dL (32.0-36.0); Mean Corpuscular Hemoglobin 26.6 pg (27.0-31.0); Mean Corpuscular Volume 84.7 fl (78.0-98.0); Mean Platelet Volume 10.8 fL (7.4-10.4); Platelet Count 731 10x3/uL (130-400); RBC Distribution Width 18.7 % (11.5-14.5); Red Blood Cell (RBC) Count 3.34 mill/uL (4.20-5.40); White Blood Cell (WBC) Count 11.4 10x3/uL (4.8-10.8)
[2023-03-25 19:29] LABS: Albumin 3.6 g/dL (3.5-5.0); Anion Gap 14 mmol/L (10-20); Bilirubin, Total 0.5 mg/dL (0.2-1.2); Carbon Dioxide 18 mmol/L (22-29); Chloride 114 mmol/L (98-107); Globulin 2.7 g/dL (2.4-3.5); Glucose 157 mg/dL (70-105); Potassium 4.5 mmol/L (3.5-5.1); Protein, Total 6.3 g/dL (6.0-8.3); Sodium 141 mmol/L (136-145)
[2023-03-25 19:40] LABS: Alkaline Phosphatase 67 U/L (40-110)
[2023-03-25 19:41] LABS: Calc. Creatinine Clearance 0 mL/min (70-130); Estimated GFR 21
[2023-03-25 19:42] LABS: BUN (Urea Nitrogen) 30 mg/dL (9.8-20.1)
[2023-03-25 19:43] LABS: ALT (SGPT) 16 U/L (8-55); AST (SGOT) 22 U/L (5-34)
[2023-03-25 21:32] LABS: Bacteria/HPF None Seen HPF (None Seen); Bilirubin Negative (Negative); Blood, Urine Negative (Negative); CAUTI Indications for Culture Dysuria,urgency,freq; Clarity Clear (Clear); Glucose, Urine (Dipstick) Normal (Negative); Ketone, Urine Negative (Negative); Leukocyte Negative Leu/uL (Negative); Nitrite Negative (Negative); Protein, Urine (Dipstick) 300 mg/dL (Neg-Trace); RBC/HPF 0-3 HPF (0-3); Specific Gravity, Urine 1.014 (1.002-1.036); Urobilinogen Normal mg/dL (Less than 2); WBC/HPF 0-3 HPF (0-3)
[2023-03-25 21:34] LABS: Urine Culture Reflex No No
[2023-03-25 21:58] LABS: Lipase 124 U/L (8-78); Magnesium 2.2 mg/dL (1.6-2.6)
== END 2023-03-26 00:25 | disposition home or self-care (01) ==
LOC: ERS 18:30
DX: R10.9 Unspecified abdominal pain (principal); D64.9 Anemia, unspecified; I12.9 Hypertensive chronic kidney disease with stage 1 through stage 4 chronic kidney disease, or unspecified chronic kidney disease; N18.9 Chronic kidney disease, unspecified; E11.22 Type 2 diabetes mellitus with diabetic chronic kidney disease; R59.9 Enlarged lymph nodes, unspecified; D72.829 Elevated white blood cell count, unspecified; E78.5 Hyperlipidemia, unspecified; F17.210 Nicotine dependence, cigarettes, uncomplicated
CPT/HCPCS: 36415; 71045; 74176; 80053; 81001; 83690; 83735; 85025; 93005

== ENCOUNTER 2023-08-03 18:24 | Emergency (ER) | payer OTHER ==
[2023-08-03 18:44] LABS: #Basophils 0.2 thou/uL (0.0-0.2); #Eosinphils 0.2 thou/uL (0.0-0.7); #Monocytes 0.9 thou/uL (0.11-0.59); #Neutrophils 8.1 thou/uL (1.40-6.50); %Basophils 1.4 % (0.0-1.0); %Eosinophils 1.8 % (0.0-10.0); %Lymphocytes 15.7 % (21.0-51.0); %Monocytes 7.4 % (0.0-10.0); %Neutrophils 71.1 % (42.0-75.0); Hematocrit 24.6 % (36.0-47.0); Hemoglobin 7.8 g/dL (12.0-16.0); Mean Corpuscular HGB CONC 31.7 g/dL (32.0-36.0); Mean Corpuscular Hemoglobin 26.5 pg (27.0-31.0); Mean Corpuscular Volume 83.7 fl (78.0-98.0); Platelet Count 876 10x3/uL (130-400); RBC Distribution Width 20.6 % (11.5-14.5); Red Blood Cell (RBC) Count 2.94 mill/uL (4.20-5.40); White Blood Cell (WBC) Count 11.4 10x3/uL (4.8-10.8)
[2023-08-03 19:10] LABS: ALT (SGPT) 10 U/L (8-55); AST (SGOT) 19 U/L (5-34); Albumin 4.1 g/dL (3.5-5.0); Alkaline Phosphatase 66 U/L (40-110); Anion Gap 13 mmol/L (10-20); BUN (Urea Nitrogen) 48 mg/dL (9.8-20.1); Bilirubin, Total 0.2 mg/dL (0.2-1.2); Calc. Creatinine Clearance 0 mL/min (70-130); Calcium 8.9 mg/dL (7.8-10.44); Carbon Dioxide 16 mmol/L (22-29); Chloride 116 mmol/L (98-107); Estimated GFR 16; Globulin 2.4 g/dL (2.4-3.5); Glucose 91 mg/dL (70-105); Protein, Total 6.5 g/dL (6.0-8.3); Sodium 140 mmol/L (136-145)
[2023-08-03] MEDS ORDERED: EPOETIN ALFA-EPBX 10,000 UNITS/ML VIAL SC SCH ×2 (23:00)
== END 2023-08-04 00:54 | disposition home or self-care (01) ==
LOC: ERS 18:24
DX: I12.9 Hypertensive chronic kidney disease with stage 1 through stage 4 chronic kidney disease, or unspecified chronic kidney disease (principal); N18.9 Chronic kidney disease, unspecified; E11.22 Type 2 diabetes mellitus with diabetic chronic kidney disease; D64.9 Anemia, unspecified; F17.210 Nicotine dependence, cigarettes, uncomplicated; Z79.899 Other long term (current) drug therapy
CPT/HCPCS: 36415; 80053; 85025; 99284; Q5106

== ENCOUNTER 2023-11-09 13:28 | Inpatient (IN) | payer OTHER ==
[2023-11-09 16:16] LABS: #Basophils 0.1 thou/uL (0.0-0.2); #Eosinphils 0.2 thou/uL (0.0-0.7); #Monocytes 0.7 thou/uL (0.11-0.59); #Neutrophils 7.9 thou/uL (1.40-6.50); %Basophils 1.3 % (0.0-1.0); %Lymphocytes 12.6 % (21.0-51.0); %Monocytes 6.6 % (0.0-10.0); Hematocrit 26.1 % (36.0-47.0); Hemoglobin 8.3 g/dL (12.0-16.0); Mean Corpuscular HGB CONC 31.8 g/dL (32.0-36.0); Mean Corpuscular Hemoglobin 25.9 pg (27.0-31.0); Mean Corpuscular Volume 81.3 fl (78.0-98.0); Mean Platelet Volume 11.1 fL (7.4-10.4); Platelet Count 654 10x3/uL (130-400); RBC Distribution Width 20.2 % (11.5-14.5); Red Blood Cell (RBC) Count 3.21 mill/uL (4.20-5.40); White Blood Cell (WBC) Count 10.4 10x3/uL (4.8-10.8)
[2023-11-09 16:29] LABS: INR-International Normal Ratio 1.2; Prothrombin Time 15.1 sec (12.0-14.7)
[2023-11-09 16:42] LABS: Troponin I 0.034 ng/mL (< 0.028)
[2023-11-09 16:46] LABS: ALT (SGPT) 11 U/L (8-55); AST (SGOT) 15 U/L (5-34); Albumin 3.7 g/dL (3.5-5.0); Alkaline Phosphatase 73 U/L (40-110); Anion Gap 13 mmol/L (10-20); BUN (Urea Nitrogen) 60 mg/dL (9.8-20.1); Bilirubin, Total 0.4 mg/dL (0.2-1.2); Calc. Creatinine Clearance 0 mL/min (70-130); Calcium 8.2 mg/dL (7.8-10.44); Carbon Dioxide 19 mmol/L (22-29); Chloride 117 mmol/L (98-107); Estimated GFR 12; Globulin 2.2 g/dL (2.4-3.5); Glucose 114 mg/dL (70-105); Magnesium 1.7 mg/dL (1.6-2.6); Protein, Total 5.9 g/dL (6.0-8.3); Sodium 144 mmol/L (136-145)
[2023-11-09 17:10] LABS: Bacteria/HPF None Seen HPF (None Seen); Bilirubin Negative (Negative); Blood, Urine Trace (Negative); CAUTI Indications for Culture Dysuria,urgency,freq; Clarity Clear (Clear); Glucose, Urine (Dipstick) 50 mg/dL (Negative); Ketone, Urine Negative (Negative); Leukocyte Negative Leu/uL (Negative); Nitrite Negative (Negative); Protein, Urine (Dipstick) 300 mg/dL (Neg-Trace); RBC/HPF 0-3 HPF (0-3); Specific Gravity, Urine 1.012 (1.002-1.036); Urobilinogen Normal mg/dL (Less than 2); WBC/HPF 0-3 HPF (0-3); pH, Urine 6.5 (5.0-9.0)
[2023-11-09 17:12] LABS: Urine Culture Reflex No No
[2023-11-09] MEDS ORDERED: Aspirin Chewable 81 MG TAB ONE (19:09)
[2023-11-09] MEDS ORDERED: Ondansetron ODT 4 MG TAB PO PRN (20:10)
[2023-11-09] MEDS ORDERED: Ondansetron PF 4 MG/2 ML Vial IVP PRN (20:10)
[2023-11-09] MEDS ORDERED: Acetaminophen 650 MG Suppository PR PRN (20:10)
[2023-11-09 21:45] LABS: Troponin I 0.025 ng/mL (< 0.028)
[2023-11-09] MEDS: NIFEdipine XL 60 MG ER.TAB PO SCH (23:46)
[2023-11-09 23:48] VITALS: BMI 25.0
[2023-11-10 00:13] LABS: Troponin I 0.023 ng/mL (< 0.028)
[2023-11-10] MEDS ORDERED: Acetaminophen 325 MG TAB ONE (00:26)
[2023-11-10] MEDS ORDERED: Famotidine 20 MG TAB ONE (00:26)
[2023-11-10] MEDS: Acetaminophen 325 MG TAB PO PRN (00:51)
[2023-11-10] MEDS: Famotidine 20 MG TAB PO SCH (00:51)
[2023-11-10] MEDS: Senokot S 8.6-50 MG TAB PO PRN (02:04)
[2023-11-10 05:17] LABS: #Basophils 0.1 thou/uL (0.0-0.2); #Eosinphils 0.2 thou/uL (0.0-0.7); #Monocytes 0.6 thou/uL (0.11-0.59); #Neutrophils 6.1 thou/uL (1.40-6.50); %Basophils 1.1 % (0.0-1.0); %Lymphocytes 17.1 % (21.0-51.0); %Monocytes 6.6 % (0.0-10.0); %Neutrophils 71.3 % (42.0-75.0); Hematocrit 22.6 % (36.0-47.0); Hemoglobin 7.1 g/dL (12.0-16.0); Mean Corpuscular HGB CONC 31.4 g/dL (32.0-36.0); Mean Corpuscular Hemoglobin 25.4 pg (27.0-31.0); Red Blood Cell (RBC) Count 2.79 mill/uL (4.20-5.40); White Blood Cell (WBC) Count 8.5 10x3/uL (4.8-10.8)
[2023-11-10 05:23] LABS: Hemoglobin A1c 5.2 % (4.0-6.0)
[2023-11-10 05:33] LABS: Platelet Count 523 10x3/uL (130-400)
[2023-11-10 05:42] LABS: Anion Gap 10 mmol/L (10-20); BUN (Urea Nitrogen) 56 mg/dL (9.8-20.1); Calc. Creatinine Clearance 17 mL/min (70-130); Calcium 7.6 mg/dL (7.8-10.44); Carbon Dioxide 16 mmol/L (22-29); Cardiac Risk 2.4 (Less than 4.5); Chloride 115 mmol/L (98-107); Cholesterol 99 mg/dl (< 200 Desired); Estimated GFR 13; Glucose 145 mg/dL (70-105); HDL Cholesterol 42 mg/dL (>60 Neg Risk); LDL Cholesterol, Calculated 47 mg/dL; Potassium 4.3 mmol/L (3.5-5.1); Sodium 137 mmol/L (136-145); Triglycerides 48 mg/dL (Less than 150)
[2023-11-10] MEDS: NIFEdipine XL 60 MG ER.TAB PO SCH (08:14)
[2023-11-10] MEDS: Sodium Bicarbonate Tab 325 MG TAB PO SCH ×2 (08:14→16:23)
[2023-11-10] MEDS: Aspirin 81 mg Enteric Coated Tablet PO SCH (08:14)
[2023-11-10] MEDS: Atorvastatin Calcium 40 MG TAB PO SCH (08:15)
[2023-11-10 10:15] LABS: Phosphorus 4.9 mg/dL (2.3-4.7)
[2023-11-10] MEDS: Carvedilol 6.25 MG TAB PO SCH ×3 (10:41→16:23)
[2023-11-10] MEDS: hydrALAZINE 25 MG TAB PO SCH ×2 (10:41→16:24)
[2023-11-10] MEDS: EPOETIN ALFA-EPBX (ESRD) 10,000 UNITS/ML VIAL SC SCH ×3 (16:17→17:44)
[2023-11-10] MEDS: Calcitriol 0.25 MCG CAP PO SCH (16:24)
[2023-11-10] MEDS: hydrALAZINE 20 MG/ML VIAL SLOW IVP PRN (22:44)
[2023-11-11 05:03] LABS: Albumin 3.1 g/dL (3.5-5.0); Anion Gap 11 mmol/L (10-20); BUN (Urea Nitrogen) 58 mg/dL (9.8-20.1); BUN/Creatinine Ratio 14.68; Calc. Creatinine Clearance 17 mL/min (70-130); Carbon Dioxide 17 mmol/L (22-29); Chloride 116 mmol/L (98-107); Estimated GFR 13; Glucose 74 mg/dL (70-105); Phosphorus 4.9 mg/dL (2.3-4.7); Potassium 4.5 mmol/L (3.5-5.1); Sodium 139 mmol/L (136-145)
[2023-11-11 05:23] LABS: #Basophils 0.1 thou/uL (0.0-0.2); #Eosinphils 0.2 thou/uL (0.0-0.7); #Monocytes 0.7 thou/uL (0.11-0.59); #Neutrophils 5.9 thou/uL (1.40-6.50); %Eosinophils 1.8 % (0.0-10.0); %Lymphocytes 15.5 % (21.0-51.0); %Monocytes 8.5 % (0.0-10.0); %Neutrophils 71.7 % (42.0-75.0); Hematocrit 26.3 % (36.0-47.0); Hemoglobin 8.4 g/dL (12.0-16.0); Mean Corpuscular HGB CONC 31.9 g/dL (32.0-36.0); Mean Corpuscular Hemoglobin 25.9 pg (27.0-31.0); Mean Corpuscular Volume 81.2 fl (78.0-98.0); Mean Platelet Volume 10.7 fL (7.4-10.4); Platelet Count 499 10x3/uL (130-400); RBC Distribution Width 19.2 % (11.5-14.5); Red Blood Cell (RBC) Count 3.24 mill/uL (4.20-5.40); White Blood Cell (WBC) Count 8.2 10x3/uL (4.8-10.8)
[2023-11-11] MEDS: Losartan 25 MG TAB PO SCH (08:48)
[2023-11-11] MEDS: Calcitriol 0.25 MCG CAP PO SCH (08:49)
[2023-11-11] MEDS ORDERED: Amlodipine 5 MG TAB PO SCH (09:00)
[2023-11-11] MEDS: Sevelamer Carbonate 800 MG TAB PO SCH (18:15)
[2023-11-12 04:53] LABS: #Basophils 0.1 thou/uL (0.0-0.2); #Eosinphils 0.2 thou/uL (0.0-0.7); #Monocytes 0.7 thou/uL (0.11-0.59); #Neutrophils 6.5 thou/uL (1.40-6.50); %Basophils 0.9 % (0.0-1.0); %Eosinophils 1.7 % (0.0-10.0); %Lymphocytes 13.9 % (21.0-51.0); %Monocytes 7.6 % (0.0-10.0); %Neutrophils 74.5 % (42.0-75.0); Hematocrit 25.1 % (36.0-47.0); Hemoglobin 8.2 g/dL (12.0-16.0); Mean Corpuscular HGB CONC 32.7 g/dL (32.0-36.0); Mean Corpuscular Hemoglobin 27.1 pg (27.0-31.0); Mean Corpuscular Volume 82.8 fl (78.0-98.0); Platelet Count 517 10x3/uL (130-400); RBC Distribution Width 19.3 % (11.5-14.5); Red Blood Cell (RBC) Count 3.03 mill/uL (4.20-5.40); White Blood Cell (WBC) Count 8.8 10x3/uL (4.8-10.8)
[2023-11-12 05:18] LABS: Anion Gap 13 mmol/L (10-20); BUN (Urea Nitrogen) 63 mg/dL (9.8-20.1); Calc. Creatinine Clearance 15 mL/min (70-130); Calcium 8.3 mg/dL (7.8-10.44); Carbon Dioxide 18 mmol/L (22-29); Chloride 112 mmol/L (98-107); Estimated GFR 11; Glucose 120 mg/dL (70-105); Potassium 4.2 mmol/L (3.5-5.1); Sodium 139 mmol/L (136-145)
[2023-11-12 11:53] VITALS: BP 136/64; TEMP 97.9
== END 2023-11-12 15:50 | disposition left against medical advice (07) | DRG 682 ==
LOC: ERS 13:28 → ERHOLD 18:48 → 2NO 11-10 01:37 → OBSVTOIN 11-10 13:28
PROVIDERS: ADMIT Internal Medicine; ATTEND Family Medicine
PROC: 30233N1 Transfusion of Nonautologous Red Blood Cells into Peripheral Vein, Percutaneous Approach (ICD-10-PCS; principal; 2023-11-10)
DX: N17.9 Acute kidney failure, unspecified (principal); I21.A1 Myocardial infarction type 2; I16.1 Hypertensive emergency; I12.0 Hypertensive chronic kidney disease with stage 5 chronic kidney disease or end stage renal disease; E87.20 Acidosis, unspecified; E87.5 Hyperkalemia; N18.5 Chronic kidney disease, stage 5; I16.0 Hypertensive urgency; E11.22 Type 2 diabetes mellitus with diabetic chronic kidney disease; D63.1 Anemia in chronic kidney disease; E78.5 Hyperlipidemia, unspecified; E21.3 Hyperparathyroidism, unspecified; C50.911 Malignant neoplasm of unspecified site of right female breast; Z79.899 Other long term (current) drug therapy; Z79.82 Long term (current) use of aspirin; Z88.8 Allergy status to other drugs, medicaments and biological substances; Z91.041 Radiographic dye allergy status; Z90.710 Acquired absence of both cervix and uterus; Z90.49 Acquired absence of other specified parts of digestive tract; Z98.890 Other specified postprocedural states; Z87.891 Personal history of nicotine dependence
CPT/HCPCS: 36415; 36430; 71045; 80048; 80053; 80061; 80069; 81001; 83036; 83735; 83880; 83970; 84100; 84443; 84484; 85025; 85610; 85730; 86850; 86900; 86901; 93005; 93306; G0378; J0360; P9016; Q5105

== ENCOUNTER 2024-03-24 11:35 | Emergency (ER) | payer OTHER ==
[2024-03-24] MEDS ORDERED: HYDROcodone/Acetaminophen 5/325 mg Tablet ONE (12:21)
[2024-03-24 12:47] LABS: #Basophils 0.13 10x3/uL (0.0-0.2); %Basophils 1.4 % (0.0-1.0); %Eosinophils 2.5 % (0.0-10.0); %Lymphocytes 13.1 % (21.0-51.0); %Monocytes 6.3 % (0.0-10.0); %Neutrophils 74.5 % (42.0-75.0); Hematocrit 27.9 % (36.0-47.0); Hemoglobin 8.9 g/dL (12.0-16.0); Mean Corpuscular HGB CONC 31.9 g/dL (32.0-36.0); Mean Corpuscular Hemoglobin 25.3 pg (27.0-31.0); Mean Corpuscular Volume 79.3 fL (78.0-98.0); Platelet Count 668 10x3/uL (130-400); RBC Distribution Width 19.3 % (11.5-14.5); Red Blood Cell (RBC) Count 3.52 mill/uL (4.20-5.40)
[2024-03-24 13:05] LABS: ALT (SGPT) 7 U/L (8-55); AST (SGOT) 16 U/L (5-34); Albumin 3.5 g/dL (3.5-5.0); Alkaline Phosphatase 74 U/L (40-110); Anion Gap 15 mmol/L (10-20); BUN (Urea Nitrogen) 78 mg/dL (9.8-20.1); Bilirubin, Total 0.4 mg/dL (0.2-1.2); Calc. Creatinine Clearance 0 mL/min (70-130); Calcium 8.4 mg/dL (7.8-10.44); Carbon Dioxide 13 mmol/L (22-29); Chloride 120 mmol/L (98-107); Estimated GFR 9; Globulin 3.3 g/dL (2.4-3.5); Glucose 119 mg/dL (70-105); Lipase 88 U/L (8-78); Potassium 4.5 mmol/L (3.5-5.1); Protein, Total 6.8 g/dL (6.0-8.3); Sodium 143 mmol/L (136-145)
[2024-03-24 14:02] LABS: Bacteria/HPF 3+ HPF (None Seen); Bilirubin Negative (Negative); Blood, Urine Negative (Negative); CAUTI Indications for Culture Dysuria,urgency,freq; Clarity Clear (Clear); Glucose, Urine (Dipstick) Normal (Negative); Ketone, Urine Negative (Negative); Leukocyte 250 Leu/uL (Negative); Nitrite Negative (Negative); Protein, Urine (Dipstick) 300 mg/dL (Neg-Trace); RBC/HPF None Seen HPF (0-3); Specific Gravity, Urine 1.012 (1.002-1.036); Urobilinogen Normal mg/dL (Less than 2)
[2024-03-24 14:04] LABS: Urine Culture Reflex Yes Yes
[2024-03-24] MEDS ORDERED: cefTRIAXone (ROCEPHIN) 1 GM VIAL ONE (14:54)
[2024-03-24] MEDS ORDERED: Sodium Chloride 0.9% 100 ML ONE (14:54)
== END 2024-03-24 15:32 | disposition home or self-care (01) ==
LOC: ERS 11:35
DX: N39.0 Urinary tract infection, site not specified (principal); E11.22 Type 2 diabetes mellitus with diabetic chronic kidney disease; I12.9 Hypertensive chronic kidney disease with stage 1 through stage 4 chronic kidney disease, or unspecified chronic kidney disease; N18.9 Chronic kidney disease, unspecified; F17.210 Nicotine dependence, cigarettes, uncomplicated; Z55.6 Problems related to health literacy
CPT/HCPCS: 36415; 71045; 74176; 80053; 81001; 83690; 84484; 85025; 87086; 93005; 96365; J0696; J3490

== ENCOUNTER 2024-06-08 12:39 | Inpatient (IN) | payer OTHER ==
[2024-06-08] MEDS ORDERED: Ondansetron PF 4 MG/2 ML Vial ONE (13:24)
[2024-06-08] MEDS ORDERED: fentaNYL 50 mcg/mL 1 mL Vial ONE ×2 (13:24→17:56)
[2024-06-08 13:57] LABS: #Basophils 0.13 10x3/uL (0.0-0.2); %Basophils 1.3 % (0.0-1.0); %Eosinophils 2.4 % (0.0-10.0); %Lymphocytes 9.3 % (21.0-51.0); %Monocytes 6.4 % (0.0-10.0); %Neutrophils 78.8 % (42.0-75.0); Hematocrit 26.6 % (36.0-47.0); Hemoglobin 8.5 g/dL (12.0-16.0); Mean Corpuscular Hemoglobin 25.3 pg (27.0-31.0); Mean Corpuscular Volume 79.2 fL (78.0-98.0); Mean Platelet Volume 12.2 fL (7.4-10.4); Platelet Count 596 10x3/uL (130-400); RBC Distribution Width 19.4 % (11.5-14.5); Red Blood Cell (RBC) Count 3.36 mill/uL (4.20-5.40)
[2024-06-08 14:22] LABS: ALT (SGPT) 8 U/L (8-55); AST (SGOT) 16 U/L (5-34); Albumin 3.6 g/dL (3.5-5.0); Alkaline Phosphatase 77 U/L (40-110); Anion Gap 17 mmol/L (10-20); BUN (Urea Nitrogen) 77 mg/dL (9.8-20.1); Bilirubin, Total 0.4 mg/dL (0.2-1.2); Calc. Creatinine Clearance 0 mL/min (70-130); Calcium 8.1 mg/dL (7.8-10.44); Carbon Dioxide 12 mmol/L (22-29); Chloride 118 mmol/L (98-107); Estimated GFR 7; Globulin 3.4 g/dL (2.4-3.5); Glucose 122 mg/dL (70-105); Potassium 4.8 mmol/L (3.5-5.1); Sodium 142 mmol/L (136-145)
[2024-06-08 14:24] LABS: Troponin I 0.012 ng/mL (< 0.028)
[2024-06-08 16:00] LABS: Bacteria/HPF None Seen HPF (None Seen); Bilirubin Negative (Negative); Blood, Urine Negative (Negative); CAUTI Indications for Culture Dysuria,urgency,freq; Clarity Clear (Clear); Glucose, Urine (Dipstick) Normal (Negative); Ketone, Urine Negative (Negative); Leukocyte 75 Leu/uL (Negative); Nitrite Negative (Negative); Protein, Urine (Dipstick) 300 mg/dL (Neg-Trace); RBC/HPF 0-3 HPF (0-3); Specific Gravity, Urine 1.011 (1.002-1.036); Urine Culture Reflex No No; Urobilinogen Normal mg/dL (Less than 2); pH, Urine 7.5 (5.0-9.0)
[2024-06-08] MEDS ORDERED: cefTRIAXone (ROCEPHIN) 1 GM VIAL ONE (18:46)
[2024-06-08] MEDS ORDERED: Sodium Chloride 0.9% 100 ML ONE (18:46)
[2024-06-08] MEDS ORDERED: Calcium Carbonate 500 MG ChewTAB PO PRN (18:57)
[2024-06-08] MEDS ORDERED: Morphine 2 MG/ML VIAL SLOW IVP PRN (19:03)
[2024-06-08] MEDS: Labetalol HCl 100 MG/20 ML VIAL SLOW IVP SCH (20:50)
[2024-06-08] MEDS: hydrALAZINE 25 MG TAB PO SCH (20:50)
[2024-06-08] MEDS: Sodium Bicarbonate 150 MEQ in Dextrose 5% in Water 1,000 ML IV SCH (20:50)
[2024-06-08] MEDS ORDERED: Insulin Lispro 100 UNIT/ML 10 ML VIAL SC PRN ×2 (22:06)
[2024-06-08] MEDS ORDERED: Dextrose 5% in Water 1,000 ML IV PRN (22:06)
[2024-06-08] MEDS ORDERED: Glucagon 1 MG/ML KIT IM PRN (22:06)
[2024-06-08] MEDS ORDERED: Dextrose 50% Abboject 50 ML SYRINGE SLOW IVP PRN (22:06)
[2024-06-08 22:13] VITALS: BMI 28.2
[2024-06-08] MEDS: Aspirin 325 MG TAB PO SCH (23:04)
[2024-06-09] MEDS: Acetaminophen 325 MG TAB PO PRN (01:15)
[2024-06-09] MEDS: traMADol HCl 50 MG TAB PO SCH ×2 (03:05→16:21)
[2024-06-09 06:54] LABS: #Basophils 0.09 10x3/uL (0.0-0.2); %Basophils 1.2 % (0.0-1.0); %Eosinophils 2.7 % (0.0-10.0); %Lymphocytes 14.5 % (21.0-51.0); %Monocytes 8.2 % (0.0-10.0); Hematocrit 20.7 % (36.0-47.0); Hemoglobin 6.6 g/dL (12.0-16.0); Mean Corpuscular HGB CONC 31.9 g/dL (32.0-36.0); Mean Corpuscular Hemoglobin 25.8 pg (27.0-31.0); Mean Corpuscular Volume 80.9 fL (78.0-98.0); Mean Platelet Volume 12.5 fL (7.4-10.4); Platelet Count 444 10x3/uL (130-400); Red Blood Cell (RBC) Count 2.56 mill/uL (4.20-5.40)
[2024-06-09 07:03] LABS: Hemoglobin A1c 5.2 % (4.0-6.0)
[2024-06-09 07:36] LABS: ALT (SGPT) 8 U/L (8-55); AST (SGOT) 11 U/L (5-34); Albumin 2.9 g/dL (3.5-5.0); Alkaline Phosphatase 64 U/L (40-110); Anion Gap 15 mmol/L (10-20); BUN (Urea Nitrogen) 69 mg/dL (9.8-20.1); Bilirubin, Total 0.2 mg/dL (0.2-1.2); Calc. Creatinine Clearance 14 mL/min (70-130); Calcium 6.9 mg/dL (7.8-10.44); Carbon Dioxide 18 mmol/L (22-29); Cardiac Risk 4.4 (Less than 4.5); Chloride 112 mmol/L (98-107); Cholesterol 109 mg/dl (< 200 Desired); Estimated GFR 8; Globulin 2.5 g/dL (2.4-3.5); Glucose 197 mg/dL (70-105); HDL Cholesterol 25 mg/dL (>60 Neg Risk); LDL Cholesterol, Calculated 68 mg/dL; Potassium 4.1 mmol/L (3.5-5.1); Protein, Total 5.4 g/dL (6.0-8.3); Sodium 141 mmol/L (136-145); Triglycerides 80 mg/dL (Less than 150)
[2024-06-09] MEDS: Aspirin 81 mg Enteric Coated Tablet PO SCH (08:39)
[2024-06-09] MEDS: Amlodipine 5 MG TAB PO SCH (08:39)
[2024-06-09] MEDS: Thiamine 100 MG TAB PO SCH (08:39)
[2024-06-09] MEDS: Topiramate 25 MG TAB PO SCH (08:39)
[2024-06-09] MEDS: NIFEdipine XL 90 MG ER.TAB PO SCH (08:39)
[2024-06-09 10:47] LABS: HBSAB Concentration Less than 8.00 mIU/mL; HBsAg Index 0.42 S/CO (0-0.99); Hep B Core Total Ab NONREACTIVE (NonReactive); Hep B Core Total Index 0.09 S/CO (0-0.79); Hep B Surf AB NONREACTIVE (NonReactive); Hep B Surf Ag NONREACTIVE S/CO (NonReactive); Hep C IgG Ab NONREACTIVE S/CO (NonReactive); Hep C Index 0.09 S/CO (0-0.79)
[2024-06-09] MEDS: Sodium Bicarbonate 150 MEQ in Dextrose 5% in Water 1,000 ML IV SCH ×2 (11:54→14:06)
[2024-06-09] MEDS: Calcium Acetate 667 MG CAP PO SCH (12:42)
[2024-06-09] MEDS: cefTRIAXone\\ROCEPHIN 1 GM in Sodium Chloride 0.9% 100 ML IVPB SCH ×2 (14:50→20:01)
[2024-06-09] MEDS: EPOETIN ALFA-EPBX (ESRD) 10,000 UNITS/ML VIAL SC SCH (15:14)
[2024-06-10 04:29] LABS: #Basophils 0.13 10x3/uL (0.0-0.2); %Basophils 1.5 % (0.0-1.0); %Eosinophils 2.6 % (0.0-10.0); %Lymphocytes 11.7 % (21.0-51.0); %Monocytes 6.4 % (0.0-10.0); %Neutrophils 75.9 % (42.0-75.0); Hematocrit 29.2 % (36.0-47.0); Hemoglobin 9.4 g/dL (12.0-16.0); Mean Corpuscular HGB CONC 32.2 g/dL (32.0-36.0); Mean Corpuscular Hemoglobin 25.7 pg (27.0-31.0); Mean Corpuscular Volume 79.8 fL (78.0-98.0); Mean Platelet Volume 11.1 fL (7.4-10.4); Platelet Count 456 10x3/uL (130-400); RBC Distribution Width 19.9 % (11.5-14.5); Red Blood Cell (RBC) Count 3.66 mill/uL (4.20-5.40)
[2024-06-10 04:43] LABS: Anion Gap 15 mmol/L (10-20); BUN (Urea Nitrogen) 61 mg/dL (9.8-20.1); Calc. Creatinine Clearance 15 mL/min (70-130); Calcium 7.3 mg/dL (7.8-10.44); Carbon Dioxide 18 mmol/L (22-29); Chloride 113 mmol/L (98-107); Estimated GFR 9; Glucose 109 mg/dL (70-105); Phosphorus 5.1 mg/dL (2.3-4.7); Potassium 4.2 mmol/L (3.5-5.1); Sodium 142 mmol/L (136-145)
[2024-06-10 05:07] LABS: HBSAB Concentration Less than 8.00 mIU/mL; HBsAg Index 0.34 S/CO (0-0.99); Hep B Core Total Ab NONREACTIVE (NonReactive); Hep B Core Total Index 0.09 S/CO (0-0.79); Hep B Surf AB NONREACTIVE (NonReactive); Hep B Surf Ag NONREACTIVE S/CO (NonReactive); Hep C IgG Ab NONREACTIVE S/CO (NonReactive); Hep C Index 0.09 S/CO (0-0.79)
[2024-06-10] MEDS ORDERED: Heparin 10,000 UNITS/ 10 ML VIAL ONE ×3 (09:30→13:45)
[2024-06-10] MEDS ORDERED: Protamine Sulfate 250 MG/25 ML VIAL ONE (09:30)
[2024-06-10] MEDS ORDERED: Heparin 5,000 UNITS/ML VIAL ONE (09:30)
[2024-06-10] MEDS ORDERED: Lidocaine 1% PF 5 ML VIAL ONE ×2 (09:31→09:41)
[2024-06-10] MEDS ORDERED: EPINEPHrine 1 MG/ML VIAL ONE (09:31)
[2024-06-10] MEDS ORDERED: Bupivacaine PF 0.5% 30 ML VIAL ONE (09:31)
[2024-06-10] MEDS ORDERED: fentaNYL 50 mcg/mL 1 mL Vial ONE ×2 (09:40→12:40)
[2024-06-10] MEDS ORDERED: Lidocaine 2% PF 5 ML VIAL ONE (09:40)
[2024-06-10] MEDS ORDERED: PHENYLEPHRINE-NS 100 MCG/ML 10 ML SYRINGE ONE ×2 (09:40→09:41)
[2024-06-10] MEDS ORDERED: PROPOFOL 20 ML ONE (09:40)
[2024-06-10] MEDS ORDERED: Midazolam HCl 2 mg/2 ml Vial ONE (09:41)
[2024-06-10] MEDS ORDERED: ePHEDrine Sulfate 50 MG/10 ML VIAL ONE (11:36)
[2024-06-10] MEDS ORDERED: Labetalol HCl 100 MG/20 ML VIAL ONE (12:17)
[2024-06-10] MEDS: Acetaminophen 500 MG TAB PO SCH (14:06)
[2024-06-10] MEDS: Ondansetron PF 4 MG/2 ML Vial IVP PRN (14:06)
[2024-06-10] MEDS: traMADol HCl 50 MG TAB PO PRN (14:07)
[2024-06-10] MEDS ORDERED: HYDROcodone/Acetaminophen 5/325 mg Tablet PO PRN (18:52)
[2024-06-10] MEDS: Ergocalciferol 1.25 MG(50,000 UNITS) CAP PO SCH (19:07)
[2024-06-10] MEDS: HYDROcodone/Acetaminophen 5/325 mg Tablet PO PRN (20:15)
[2024-06-10] MEDS: oxyCODONE 5 MG TAB PO SCH (22:05)
[2024-06-10] MEDS: Tuberculin PPD 0.1 ML SYRINGE (10 TEST VIAL) I-DERMAL SCH (23:48)
[2024-06-11 05:27] LABS: #Basophils 0.09 10x3/uL (0.0-0.2); %Basophils 0.9 % (0.0-1.0); %Eosinophils 1.6 % (0.0-10.0); %Lymphocytes 7.1 % (21.0-51.0); %Monocytes 8.2 % (0.0-10.0); Hemoglobin 8.7 g/dL (12.0-16.0); Mean Corpuscular HGB CONC 32.2 g/dL (32.0-36.0); Mean Corpuscular Hemoglobin 25.8 pg (27.0-31.0); Mean Corpuscular Volume 80.1 fL (78.0-98.0); Mean Platelet Volume 11.7 fL (7.4-10.4); Platelet Count 456 10x3/uL (130-400); RBC Distribution Width 20.3 % (11.5-14.5); Red Blood Cell (RBC) Count 3.37 mill/uL (4.20-5.40)
[2024-06-11 06:25] LABS: Anion Gap 16 mmol/L (10-20); BUN (Urea Nitrogen) 50 mg/dL (9.8-20.1); Calc. Creatinine Clearance 15 mL/min (70-130); Calcium 7.1 mg/dL (7.8-10.44); Carbon Dioxide 23 mmol/L (22-29); Chloride 108 mmol/L (98-107); Estimated GFR 10; Glucose 93 mg/dL (70-105); Phosphorus 5.5 mg/dL (2.3-4.7); Potassium 4.5 mmol/L (3.5-5.1); Sodium 142 mmol/L (136-145)
[2024-06-11] MEDS: Calcium Acetate 667 MG CAP PO SCH (12:56)
[2024-06-11] MEDS: Benzocaine/Menthol 1 LOZ LOZ PO PRN (13:09)
[2024-06-11] MEDS ORDERED: Heparin 10,000 UNITS/ 10 ML VIAL ONE (13:51)
[2024-06-12] MEDS: diphenhydrAMINE 50 MG CAP PO SCH (00:18)
[2024-06-12] MEDS: diphenhydrAMINE 25 MG CAP PO SCH (00:47)
[2024-06-12] MEDS: diphenhydrAMINE 25 MG CAP PO PRN (13:05)
[2024-06-13 05:58] LABS: Hematocrit 26.1 % (36.0-47.0); Hemoglobin 8.3 g/dL (12.0-16.0)
[2024-06-13 06:36] LABS: Anion Gap 16 mmol/L (10-20); BUN (Urea Nitrogen) 58 mg/dL (9.8-20.1); Calc. Creatinine Clearance 13 mL/min (70-130); Carbon Dioxide 23 mmol/L (22-29); Chloride 106 mmol/L (98-107); Estimated GFR 8; Glucose 93 mg/dL (70-105); Potassium 4.7 mmol/L (3.5-5.1); Sodium 140 mmol/L (136-145)
[2024-06-13] MEDS ORDERED: Heparin 10,000 UNITS/ 10 ML VIAL ONE (10:21)
[2024-06-13] MEDS: READ PPD TEST SITE PO SCH (14:34)
[2024-06-13] MEDS: Senokot S 8.6-50 MG TAB PO PRN (14:42)
[2024-06-14 05:32] LABS: Anion Gap 17 mmol/L (10-20); BUN (Urea Nitrogen) 45 mg/dL (9.8-20.1); Calc. Creatinine Clearance 16 mL/min (70-130); Calcium 8.6 mg/dL (7.8-10.44); Carbon Dioxide 26 mmol/L (22-29); Chloride 101 mmol/L (98-107); Estimated GFR 11; Glucose 91 mg/dL (70-105); Potassium 4.6 mmol/L (3.5-5.1); Sodium 139 mmol/L (136-145)
[2024-06-14 07:53] VITALS: TEMP 98.7
[2024-06-14 08:26] VITALS: BP 138/68
== END 2024-06-14 13:35 | disposition home or self-care (01) | DRG 673 ==
LOC: SUATTDRO 12:39 → ERS 12:39 → T4-A 18:52 → OBSVTOIN 06-09 11:33 → T4-A 06-09 21:48
PROVIDERS: ADMIT Internal Medicine; ATTEND Family Medicine
PROC: 30233N1 Transfusion of Nonautologous Red Blood Cells into Peripheral Vein, Percutaneous Approach (ICD-10-PCS; 2024-06-09)
PROC: 0JH63XZ Insertion of Tunneled Vascular Access Device into Chest Subcutaneous Tissue and Fascia, Percutaneous Approach (ICD-10-PCS; principal; 2024-06-10)
PROC: 031B0ZF Bypass Right Radial Artery to Lower Arm Vein, Open Approach (ICD-10-PCS; 2024-06-10)
PROC: 02HV33Z Insertion of Infusion Device into Superior Vena Cava, Percutaneous Approach (ICD-10-PCS; 2024-06-10)
PROC: B518ZZA Fluoroscopy of Superior Vena Cava, Guidance (ICD-10-PCS; 2024-06-10)
PROC: 0JPT0WZ Removal of Totally Implantable Vascular Access Device from Trunk Subcutaneous Tissue and Fascia, Open Approach (ICD-10-PCS; 2024-06-10)
PROC: 5A1D70Z Performance of Urinary Filtration, Intermittent, Less than 6 Hours Per Day (ICD-10-PCS; 2024-06-11)
DX: I12.0 Hypertensive chronic kidney disease with stage 5 chronic kidney disease or end stage renal disease (principal); N18.6 End stage renal disease; E87.20 Acidosis, unspecified; K55.1 Chronic vascular disorders of intestine; N25.81 Secondary hyperparathyroidism of renal origin; E11.22 Type 2 diabetes mellitus with diabetic chronic kidney disease; F17.210 Nicotine dependence, cigarettes, uncomplicated; E78.5 Hyperlipidemia, unspecified; M19.90 Unspecified osteoarthritis, unspecified site; E83.51 Hypocalcemia; D63.1 Anemia in chronic kidney disease; Z92.3 Personal history of irradiation; Z88.5 Allergy status to narcotic agent; Z90.49 Acquired absence of other specified parts of digestive tract; Z90.710 Acquired absence of both cervix and uterus; Z92.21 Personal history of antineoplastic chemotherapy; Z85.3 Personal history of malignant neoplasm of breast; Z91.041 Radiographic dye allergy status; Z79.899 Other long term (current) drug therapy; Z87.442 Personal history of urinary calculi; Z90.722 Acquired absence of ovaries, bilateral; E83.52 Hypercalcemia; E83.39 Other disorders of phosphorus metabolism
CPT/HCPCS: 36415; 36416; 36430; 71045; 74176; 80048; 80053; 80061; 81001; 82306; 83036; 83605; 83735; 83880; 83970; 84100; 84484; 85014; 85018; 85025; 86580; 86704; 86706; 86803; 86850; 86900; 86901; 87086; 87340; 93005; 93970; 96365; 96375; 96376; A6258; C1750; C1751; G0378; J0171; J0665; J0696; J1644; J2001; J2250; J2405; J2704; J2720; J3010; J7070; P9016; Q5105

== ENCOUNTER 2024-08-22 06:58 | Emergency (ER) | payer OTHER ==
[2024-08-22 07:27] LABS: #Basophils 0.25 10x3/uL (0.0-0.2); %Basophils 1.6 % (0.0-1.0); %Eosinophils 2.2 % (0.0-10.0); %Lymphocytes 12.2 % (21.0-51.0); %Monocytes 6.1 % (0.0-10.0); %Neutrophils 73.7 % (42.0-75.0); Hematocrit 26.3 % (36.0-47.0); Hemoglobin 8.3 g/dL (12.0-16.0); Mean Corpuscular HGB CONC 31.6 g/dL (32.0-36.0); Mean Corpuscular Hemoglobin 26.2 pg (27.0-31.0); Mean Platelet Volume 10.1 fL (7.4-10.4); Platelet Count 644 10x3/uL (130-400); RBC Distribution Width 18.6 % (11.5-14.5); Red Blood Cell (RBC) Count 3.17 mill/uL (4.20-5.40)
[2024-08-22 07:41] LABS: Bacteria/HPF None Seen HPF (None Seen); Bilirubin Negative (Negative); Blood, Urine Trace (Negative); CAUTI Indications for Culture Pelvic or flank pain; Clarity Clear (Clear); Glucose, Urine (Dipstick) Normal (Negative); Ketone, Urine Negative (Negative); Leukocyte 500 Leu/uL (Negative); Nitrite Negative (Negative); Protein, Urine (Dipstick) 200 mg/dL (Neg-Trace); Specific Gravity, Urine 1.006 (1.002-1.036); Squamous Epithelial 0-3 HPF (0-3); Urobilinogen Normal mg/dL (Less than 2); WBC/HPF Greater than 50 HPF (0-3)
[2024-08-22] MEDS ORDERED: Mag-Al 1200 mg/1200 mg/30 ML UDCUP ONE (07:47)
[2024-08-22] MEDS ORDERED: Lidocaine Viscous Sol 2% 15 ml UD Cup ONE (07:48)
[2024-08-22 07:52] LABS: Urine Culture Reflex Yes Yes
[2024-08-22 07:56] LABS: ALT (SGPT) 8 U/L (8-55); AST (SGOT) 15 U/L (5-34); Albumin 3.8 g/dL (3.5-5.0); Alkaline Phosphatase 94 U/L (40-110); Anion Gap 16 mmol/L (10-20); BUN (Urea Nitrogen) 87 mg/dL (9.8-20.1); Bilirubin, Total 0.3 mg/dL (0.2-1.2); Calc. Creatinine Clearance 0 mL/min (70-130); Calcium 8.6 mg/dL (7.8-10.44); Carbon Dioxide 12 mmol/L (22-29); Chloride 117 mmol/L (98-107); Estimated GFR 7; Globulin 3.5 g/dL (2.4-3.5); Glucose 90 mg/dL (70-105); Potassium 5.8 mmol/L (3.5-5.1); Protein, Total 7.3 g/dL (6.0-8.3); Sodium 139 mmol/L (136-145)
[2024-08-22] MEDS ORDERED: cefTRIAXone (ROCEPHIN) 1 GM VIAL ONE (09:44)
[2024-08-22] MEDS ORDERED: metroNIDAZOLE 250 MG TAB ONE (10:34)
[2024-08-22 10:52] LABS: HBSAB Concentration Less than 8.00 mIU/mL; HBsAg Index 0.39 S/CO (0-0.99); Hep B Core Total Ab NONREACTIVE (NonReactive); Hep B Core Total Index 0.09 S/CO (0-0.79); Hep B Surf AB NONREACTIVE (NonReactive); Hep B Surf Ag NONREACTIVE S/CO (NonReactive); Hep C IgG Ab NONREACTIVE S/CO (NonReactive); Hep C Index 0.15 S/CO (0-0.79)
[2024-08-22] MEDS ORDERED: EPOETIN ALFA-EPBX (ESRD) 10,000 UNITS/ML VIAL IVP SCH (12:00)
[2024-08-22 22:07] LABS: Chlamydia by PCR, Vaginal Swab Not Detected (NotDetected); GC by PCR, Vaginal Swab Not Detected (NotDetected)
== END 2024-08-22 15:15 | disposition home or self-care (01) ==
LOC: ERS 06:58
DX: K29.00 Acute gastritis without bleeding (principal); A59.01 Trichomonal vulvovaginitis; I12.0 Hypertensive chronic kidney disease with stage 5 chronic kidney disease or end stage renal disease; E11.22 Type 2 diabetes mellitus with diabetic chronic kidney disease; N18.6 End stage renal disease; F17.210 Nicotine dependence, cigarettes, uncomplicated
CPT/HCPCS: 36415; 71046; 74176; 80053; 81001; 83690; 83735; 85025; 86704; 86706; 86803; 87086; 87340; 87428; 87480; 87491; 87510; 87591; 87660; 93005; 94760; 96374; J0696

== ENCOUNTER 2024-10-06 14:24 | Emergency (ER) | payer OTHER ==
[2024-10-06 14:53] LABS: Bacteria/HPF None Seen HPF (None Seen); Bilirubin Negative (Negative); Blood, Urine Negative (Negative); CAUTI Indications for Culture Pelvic or flank pain; Clarity Clear (Clear); Glucose, Urine (Dipstick) Normal (Negative); Ketone, Urine Negative (Negative); Leukocyte Negative Leu/uL (Negative); Nitrite Negative (Negative); Protein, Urine (Dipstick) 200 mg/dL (Neg-Trace); RBC/HPF 0-3 HPF (0-3); Specific Gravity, Urine 1.013 (1.002-1.036); Squamous Epithelial 0-3 HPF (0-3); Urobilinogen Normal mg/dL (Less than 2); pH, Urine 7.5 (5.0-9.0)
[2024-10-06 14:59] LABS: Urine Culture Reflex No No
[2024-10-06] MEDS ORDERED: Acetaminophen 325 MG TAB ONE (15:10)
[2024-10-06 15:16] LABS: #Basophils 0.15 10x3/uL (0.0-0.2); %Basophils 1.5 % (0.0-1.0); %Eosinophils 3.5 % (0.0-10.0); %Lymphocytes 11.8 % (21.0-51.0); %Monocytes 8.1 % (0.0-10.0); Hematocrit 30.3 % (36.0-47.0); Hemoglobin 9.5 g/dL (12.0-16.0); Mean Corpuscular HGB CONC 31.4 g/dL (32.0-36.0); Mean Platelet Volume 11.4 fL (7.4-10.4); Platelet Count 672 10x3/uL (130-400); RBC Distribution Width 19.2 % (11.5-14.5); Red Blood Cell (RBC) Count 3.65 mill/uL (4.20-5.40)
[2024-10-06 15:38] LABS: ALT (SGPT) 12 U/L (8-55); AST (SGOT) 23 U/L (5-34); Alkaline Phosphatase 79 U/L (40-110); Anion Gap 19 mmol/L (10-20); BUN (Urea Nitrogen) 75 mg/dL (9.8-20.1); Bilirubin, Total 0.4 mg/dL (0.2-1.2); Calc. Creatinine Clearance 0 mL/min (70-130); Calcium 8.8 mg/dL (7.8-10.44); Carbon Dioxide 21 mmol/L (22-29); Chloride 107 mmol/L (98-107); Estimated GFR 8; Globulin 4.1 g/dL (2.4-3.5); Glucose 83 mg/dL (70-105); Potassium 5.1 mmol/L (3.5-5.1); Protein, Total 8.1 g/dL (6.0-8.3); Sodium 142 mmol/L (136-145)
[2024-10-06] MEDS ORDERED: hydrALAZINE 10 MG TAB ONE (15:52)
[2024-10-06] MEDS ORDERED: Methocarbamol 500 MG TAB ONE (16:06)
== END 2024-10-06 16:28 | disposition home or self-care (01) ==
LOC: ERS 14:24
DX: S39.012A Strain of muscle, fascia and tendon of lower back, initial encounter (principal); I12.0 Hypertensive chronic kidney disease with stage 5 chronic kidney disease or end stage renal disease; E11.22 Type 2 diabetes mellitus with diabetic chronic kidney disease; N18.6 End stage renal disease; E78.5 Hyperlipidemia, unspecified; F17.210 Nicotine dependence, cigarettes, uncomplicated; Z92.0 Personal history of contraception; X50.0XXA Overexertion from strenuous movement or load, initial encounter; Y93.89 Activity, other specified; Y92.096 Garden or yard of other non-institutional residence as the place of occurrence of the external cause
CPT/HCPCS: 36415; 80053; 81001; 85025; 99283

== ENCOUNTER 2025-06-06 07:59 | Outpatient (CLI) | payer OTHER, MEDICAID | END 2025-06-06 08:00 | disposition home or self-care (01) | LOC: CT 07:59 | PROVIDERS: ATTEND Internal Medicine Nephrology | DX: N18.6 End stage renal disease (principal); R16.1 Splenomegaly, not elsewhere classified | CPT/HCPCS: 74176 ==